=== PATIENT | male | born 1940 | race Caucasian/White ===

== ENCOUNTER 2016-09-14 08:42 | Inpatient (IN) | payer OTHER ==
--- NOTE | 2016-08-15 09:53 | HISTORY & PHYSICAL EXAMINATION ---
DATE OF ADMISSION: 09/14/2016 PROCEDURE: Left knee replacement. HISTORY OF PRESENT ILLNESS: The patient is a pleasant 76-year-old male who presents for preoperative evaluation prior to left knee replacement. States he is having pain in this knee for several years now which has gradually worsened, it has now gotten to the point that it is affecting his daily activities including walking, standing and going up and down steps. He takes oral anti-inflammatories including ibuprofen, has had previous viscosupplementation with no relief. He has completed a course of physical therapy. At this point in time, he has failed conservative measures and would like to proceed with left knee replacement. PAST MEDICAL HISTORY: 1. Hypertension. 2. High cholesterol. 3. History of melanoma. 4. BPH. ALLERGIES: No known drug allergies. MEDICATIONS: 1. Amlodipine 2.5 mg daily. 2. Benazepril 20 mg daily. 3. Zocor 20 mg daily. 4. Finasteride 5 mg daily. 5. Aspirin 81 mg daily. PAST SURGICAL HISTORY: Melanoma arm removed 2008. FAMILY HISTORY: Noncontributory. SOCIAL HISTORY: Denies a history of smoking or tobacco use. No alcohol consumption. REVIEW OF SYSTEMS: Otherwise negative. Please see HPI for pertinent positives. PHYSICAL EXAMINATION: GENERAL: A pleasant 76-year-old male in no acute distress, alert and oriented x3. He is 5 feet 10, weighs 200 pounds. VITAL SIGNS: Blood pressure is 132/80, pulse 93. HEENT: Normocephalic, atraumatic. CARDIAC: He has a grade 2 systolic ejection murmur noted, he also has regular rate and rhythm for between 5-6 beats and then drop beat and then resumes regular rhythm. LUNGS: Clear to auscultation without rales or wheeze bilaterally. ABDOMEN: Soft, nontender. Bowel sounds present. EXTREMITIES: Left lower extremity neurovascularly intact. Calves are soft and nontender. DP pulse +2. Demonstrates good quad tone. Straight leg raise without lag. No erythema or warmth. Has mild effusion. Overall has a varus alignment. Positive crepitation with motion. Range of motion is 0/3/120. IMAGING: Review of the left knee showed findings consistent with degenerative joint disease including joint space narrowing, subchondral sclerosis, osteophyte formation noted. IMPRESSION: 1. Left knee degenerative joint disease. 2. Past medical history as outlined above. PLAN: Further care discussed with the patient. At this point in time, has failed conservative measures and would like to proceed with left knee replacement. We will place on aspirin 81 mg p.o. b.i.d. for a month postop. Plan to discharge home with outpatient physical therapy. SHERITA
[2016-08-15 11:08] VITALS: BMI 28.0
--- NOTE | 2016-08-15 11:50 | PAT Medication Instructions ---
Service Date August 15, 2016. Current Home Medication List Amlodipine (Norvasc), 2.5 MG PO QAM Aspirin (Aspir-81), 1 TAB PO QPM Benazepril (Lotensin), 20 MG PO QAM Finasteride (Proscar), 5 MG PO QPM Znhlfmkythm-Totgwwzswmt-Tbkuye (Glucosamine & Chrondroiti) Vgsulduwtbe-Dhzgpbevaqn-Laz C- (Glucosamine Chondroitin), 2 CAP PO QAM Ibuprofen (Advil), 200 MG PO QAM Indomethacin (Indocin), 25 MG PO PRN PRN for GOUT Simvastatin (Zocor), 20 MG PO QPM Tamsulosin Hcl (Flomax), 0.4 MG PO QPM Medication Instructions For Your Scheduled Surgery Ibuprofen (Advil), 200 MG PO QAM (patient will check with surgeon for instructions) Indomethacin (Indocin), 25 MG PO PRN PRN for GOUT (not taking currently) - Hold the following medications 7 days prior to surgery: Splqdwetugc-Gowouexbwed-Wobuwo (Glucosamine & Chrondroiti) - Hold the following medications the morning of surgery: Benazepril (Lotensin), 20 MG PO QAM - Take the following medications the morning of surgery with a sip of water: Amlodipine (Norvasc), 2.5 MG PO QAM - Take the following medications as scheduled the night before surgery: Simvastatin (Zocor), 20 MG PO QPM Tamsulosin Hcl (Flomax), 0.4 MG PO QPM Finasteride (Proscar), 5 MG PO QPM Aspirin (Aspir-81), 1 TAB PO QPM If you have any questions please call us at [phone] or [phone] ( [place]) or [phone]
--- NOTE | 2016-08-15 12:19 | DIAGNOSTIC IMAGING REPORT ---
CHEST 2 VIEWS ROUTINE CLINICAL HISTORY: Preoperative evaluation. COMPARISON STUDY: No previous studies for comparison. FINDINGS: Lung volumes are at the lower limits of normal. Mild left basilar opacity suggests atelectasis. There is no consolidation to suggest pneumonia and there is no evidence of pulmonary edema. Cardiomediastinal silhouette is normal. IMPRESSION: No acute cardiopulmonary findings. Electronically signed by: Uli Freire M.D. 08/15/2016 12:17 PM Dictated Date/Time: 08/15/2016 12:17 PM
[2016-08-15 12:58] LABS: BASO % 0.3 %; BASO ABS # 0.02 K/uL (0-0.2); COMPLETE YES; EOS % 1.3 %; HEMATOCRIT 43.6 % (42-52); IG% 0.1 %; LYMPH % 29.9 %; LYMPH ABS # 2.23 K/uL (1.2-3.4); MEAN CELL VOLUME 88.6 fL (80-100); MEAN CORPUSCULAR HEMOGLOBIN 30.3 pg (25-34); MEAN CORPUSCULAR HGB CONC 34.2 g/dl (32-36); MONO % 5.6 %; NEUT % 62.8 %; PLATELET COUNT 182 K/uL (130-400); RED BLOOD COUNT 4.92 M/uL (4.7-6.1); WHITE BLOOD COUNT 7.47 K/uL (4.8-10.8)
[2016-08-15 12:59] LABS: URINE APPEARANCE CLEAR (CLEAR); URINE BILIRUBIN NEG (NEG); URINE COLOR YELLOW; URINE NITRITE NEG (NEG); URINE PH 6.5 (4.5-7.5); URINE SPECIFIC GRAVITY 1.016 (1.000-1.030); UROBILINOGEN NEG (NEG)
[2016-08-15 13:08] LABS: MANUAL MICROSCOPIC REQUIRED? NO; REVIEW REQ? NO
[2016-08-15 13:13] LABS: PROTHROMBIN TIME (PATIENT) 10.7 SECONDS (9.0-12.0)
[2016-08-15 13:16] LABS: ESTIMATED AVERAGE GLUCOSE 120 mg/dl; HA1C FLAG Normal (Normal)
[2016-08-15 13:55] LABS: BUN/CREATININE RATIO 9.5 (10-20); CALCIUM 9.3 mg/dl (8.5-10.1); POTASSIUM 3.9 mmol/L (3.5-5.1)
[2016-09-14] VITALS (7 sets, daily range): BP systolic 103–161; BP diastolic 58–85; PULSE 56–82; TEMP 36.4–36.7; O2SAT 94–98; Ht 180.3 cm; Wt 91.6 kg
[~2016-09-14] VITALS: Ht 180.3 cm; Wt 91.6 kg
--- NOTE | 2016-09-14 06:53 | History & Physical Bridge Note ---
H&P Re-Evaluation Bridge Note: I have examined the patient, reviewed the History & Physical and in the interval since the performance of the History & Physical I have noted the following changes of clinical significance: No changes noted
[~2016-09-14 08:42] MED LIST: ACETAMINOPHEN 500 MG TAB PO SCH; AMLO2.5T PO; ASPI-232 PO; BENA20TA14 PO; BUPIVACAINE 0.5 % 5 MG/1 ML PF 10ML VIAL ONE; CEFAZOLIN 2000 MG/60 ML D5W 60 ML IV SCH; CeleBREX 200 MG CAP PO SCH; DEXAMETHASONE 4 MG TAB PO SCH; FAMOTIDINE 20 MG TAB PO SCH; FINA5TAB PO; GABAPENTIN 300 MG CAP PO SCH; GLUC1CAP35 PO; GLUCPOW41; IBUP-1050 PO; INDO-22 PO; LACTATED RINGER'S 1000ML 1,000 ML IV SCH; LACTATED RINGER'S 1000ML 500 ML IV ONE; LACTATED RINGER'S 1000ML IV SCH; METOCLOPRAMIDE HCL 10 MG TAB PO SCH; ROPIVACAINE 5MG/ML 30 ML 150 MG, BUPIVACAINE/EPINEPHR 0.5% MPF 30 ML, KETOROLAC TROMETH... INFIL SCH; SIMV20TA2 PO; TAMS0.4C38 PO
[2016-09-14] MEDS ORDERED: ORTHO JOINT ANESTHETIC ONE (10:49)
[2016-09-14] MEDS ORDERED: BACITRACIN 50000 UNIT VIAL ONE (10:49)
[2016-09-14] MEDS ORDERED: POVIDONE-IODINE OP SOLN 30 ML BTL ONE (10:49)
[2016-09-14] MEDS: TRANEXAMIC ACID INJ 1,000 MG in SODIUM CHLORIDE 0.9% 100ML 100 ML IV SCH ×2 (10:55→14:07)
[2016-09-14] MEDS ORDERED: EpHEDrine SULFATE INJ 50 MG/ML AMP IV PRN (12:00)
[2016-09-14] MEDS ORDERED: FENTANYL CITRATE INJ 50 MCG/1 ML 2 ML VIAL IV PRN (12:00)
[2016-09-14] MEDS ORDERED: ONDANSETRON INJ 2 MG/ML 2 ML VIAL IV PRN ×2 (12:00→12:30)
[2016-09-14] MEDS ORDERED: ATROPINE SULFATE 0.1 MG/ML 5ML SYR IV PRN (12:00)
--- NOTE | 2016-09-14 12:29 | [facility] Post Operative Brief Note ---
Immediate Operative Summary Operative Date Sep 14, 2016. Pre-Operative Diagnosis Degenerative Joint Disease, Left Knee Post-Operative Diagnosis Degenerative Joint Disease, Left Knee Procedure(s) Performed Left Total Knee Arthoplasty Surgeon Dr. Rinaldi Second Facing Baster Surgeon(s) Koby Swann PA-C Estimated Blood Loss 5 cc Findings severe djd lt knee Specimens A: Left knee bone and tissue Complication(s) None Disposition Recovery Room / PACU
[2016-09-14] MEDS ORDERED: HYDROCODONE/ACETAMOPHEN 5/325MG TAB PO PRN (12:30)
[2016-09-14] MEDS ORDERED: METOCLOPRAMIDE HCL INJ 5 MG/ML 2 ML VIAL IV PRN (12:30)
[2016-09-14] MEDS ORDERED: SOD PHOSPHATE/SOD BIPHOSPHATE ENEMA 132 ML BTL PR PRN (12:30)
[2016-09-14] MEDS ORDERED: TRAMADOL HCL 50 MG TAB PO PRN (12:30)
[2016-09-14] MEDS ORDERED: MAGNESIUM HYDROXIDE SUSP 30 ML UDC PO PRN (12:30)
[2016-09-14] MEDS ORDERED: BISACODYL 10 MG SUPP PR PRN (12:30)
[2016-09-14] MEDS ORDERED: ZOLPIDEM TARTRATE 5 MG TAB PO PRN (12:30)
[2016-09-14] MEDS ORDERED: ALUMINUM/MAGNESIUM/SIMETH (MAALOX MAX) 30 ML UDC PO PRN (12:30)
[2016-09-14] MEDS ORDERED: DiphenhydrAMINE HCL 50 MG/ML VIAL IV PRN (12:30)
[2016-09-14] MEDS ORDERED: FENTANYL CITRATE INJ 50 MCG/1 ML 2 ML VIAL ONE (12:44)
[2016-09-14] MEDS ORDERED: PROPOFOL IV EMULSION 10 MG/ML 20 ML VIAL IV ONE (12:44)
[2016-09-14] MEDS ORDERED: LIDOCAINE HCL 2% 2 ML VIAL (20MG/ML) ONE (12:44)
[2016-09-14] MEDS ORDERED: MIDAZOLAM HCL 1 MG/ML 2ML VIAL ONE (12:44)
[2016-09-14] MEDS ORDERED: MoRPHine SULFATE 2 MG/ML CARP IV PRN (13:00)
--- NOTE | 2016-09-14 13:39 | Anesthesiology Progress Note ---
Anesthesia Post Op Note Date & Time Sep 14, 2016 at 13:39 Vital Signs Pain Intensity: 0 Vital Signs Past 12 Hours Date Time Temp Pulse Resp B/P (MAP) Pulse Ox O2 Delivery O2 Flow Rate FiO2 09/14/16 13:36 36.4 09/14/16 13:32 60 19 115/64 96 09/14/16 13:32 58 19 09/14/16 13:27 55 14 109/62 94 09/14/16 13:27 55 14 09/14/16 13:26 54 15 94 09/14/16 13:26 55 15 09/14/16 13:22 107/58 09/14/16 13:21 59 18 09/14/16 13:21 60 18 95 09/14/16 13:17 115/61 09/14/16 13:16 57 13 09/14/16 13:16 57 13 95 09/14/16 13:15 62 13 96 09/14/16 13:15 62 13 09/14/16 13:12 99/55 09/14/16 13:10 60 14 09/14/16 13:10 59 14 95 09/14/16 13:07 110/66 09/14/16 13:05 61 16 09/14/16 13:05 59 16 98 09/14/16 13:02 132/56 09/14/16 13:00 63 19 09/14/16 13:00 63 19 97 09/14/16 12:57 109/70 09/14/16 12:55 36.8 16 109/70 97 Mask 10 09/14/16 09:19 36.4 82 20 161/85 97 Room Air Notes Mental Status: alert / awake / arousable, participated in evaluation Pt Amnestic to Procedure: Yes Nausea / Vomiting: adequately controlled Pain: adequately controlled Airway Patency, RR, SpO2: stable & adequate BP & HR: stable & adequate Hydration State: stable & adequate Neuraxial Anesthesia: was administered, sensory block is resolving Anesthetic Complications: no major complications apparent
--- NOTE | 2016-09-14 14:02 | DIAGNOSTIC IMAGING REPORT ---
TWO VIEWS LEFT KNEE CLINICAL HISTORY: Postoperative examination. FINDINGS: AP and crosstable lateral portable views of the left knee are obtained. A left knee arthroplasty is in near anatomic alignment. There has been undersurface remodeling of the patella. No acute fracture is seen. There are expected postoperative changes around the knee including skin clips, a surgical drain, soft tissue edema, and subcutaneous gas. There is atherosclerotic calcification of the popliteal artery. IMPRESSION: Expected postoperative changes status post left knee arthroplasty. No acute fracture is seen. Electronically signed by: Julián Roberts M.D. 09/14/2016 2:01 PM Dictated Date/Time: 09/14/2016 2:01 PM
--- NOTE | 2016-09-14 14:27 | OPERATIVE REPORT ---
DATE OF OPERATION: 09/14/2016 PREOPERATIVE DIAGNOSIS: Severe end-stage tricompartmental degenerative joint disease, left knee. POSTOPERATIVE DIAGNOSIS: Severe end-stage tricompartmental degenerative joint disease, left knee. PROCEDURE: Left total knee arthroplasty utilizing Burgos [employer] Nephew Journey II patient matched total knee arthroplasty, size 7 femur, 7 tibia, 10 poly, and 32 oval patella. SURGEON: Dr. José Miguel Rinaldi. CORE MANAGER: WENDI Mac, who was necessary for prepping, draping, retraction, wound closure of subQ, fascia and skin and was necessary for the case. ESTIMATED BLOOD LOSS: 5 mL. COMPLICATIONS: None. HISTORY OF PRESENT ILLNESS: The patient presents as a 76-year-old white male, being seen and evaluated with complaints of ongoing pain attributable to his left knee. He has failed attempts at conservative management including physical therapy, anti-inflammatories, relative rest, activity modification, and injections including viscosupplementation and corticosteroids. He presents after thorough discussion of risks and complications for left total knee arthroplasty. DESCRIPTION OF PROCEDURE: The patient was properly prepped and draped in supine position for total knee arthroplasty after identifying the appropriate surgical site. An anterior midline incision was made through the subcutaneous tissues down to the region of the extensor mechanism. A medial parapatellar incision was subsequently made. Meticulous hemostasis was obtained and performed at all times. The patella having been subluxed lateralward, medial and lateral meniscal remnants were excised. The patellar cut was then initially made and was sized to the appropriate size. After subluxing the tibia forward the appropriate meniscal fragments having been removed the distal femur was then cut first utilizing a Burgos and Nephew block. The distal femoral cuts and chamfer cuts were all made under direct visualization and the proximal tibial osteotomy cut was also made utilizing Burgos and Nephew blocks and checked with an extramedullary guide. The appropriate trial components on the femur and tibia were placed. Appropriate trial spacers were used to check flexion and extension gaps. With flexion and extension gaps being equal, the components were then subsequently after thorough irrigation and debridement lavage components were then subsequently cemented in the following order: femur, tibia and patella. Exparel was used for intraoperative anesthesia, the medial parapatellar incision was closed utilizing #1 Vicryl, subQ was closed with 2-0 Vicryl, skin was closed with skin clips. A sterile compression dressing was placed. The patient was taken to recovery room in stable condition. Due to the complex nature of the procedure, the entire surgery was performed with the operational assistance of WENDI Mac. The team assistant, under direct supervision, was involved in the actual performance of all aspects of the surgical procedure including hemostasis, tissue retraction and incision, instrument management, patient positioning, and wound closure. I attest to the content of the Intraoperative Record and any orders documented therein. Any exception s are noted below.
[2016-09-14] MEDS: SODIUM CHLORIDE 0.9% 1000ML 1,000 ML IV SCH (14:45)
[2016-09-14] MEDS: OXYCODONE HCL 10 MG TABCR (OXYCONTIN) PO SCH (15:42)
[2016-09-14] MEDS: FERROUS GLUCONATE 324 MG TAB PO SCH (17:53)
[2016-09-14] MEDS ORDERED: TRANEXAMIC ACID INJ 1,000 MG in SODIUM CHLORIDE 0.9% 100ML 100 ML IV SCH (19:00)
[2016-09-14] MEDS: CEFAZOLIN IV 1,000 MG in DEXTROSE 5% 50ML 50 ML IV SCH (21:00)
[2016-09-14] MEDS ORDERED: ASPIRIN 325 MG ECTAB PO SCH (21:00)
[2016-09-14] MEDS: DOCUSATE SODIUM 100 MG CAP PO SCH (21:02)
[2016-09-14] MEDS: SIMVASTATIN 20 MG TAB PO SCH (21:02)
[2016-09-14] MEDS: ASPIRIN 81 MG ECTAB PO SCH (21:02)
[2016-09-14] MEDS: FINASTERIDE 5 MG TAB PO SCH (21:02)
[2016-09-14] MEDS: TAMSULOSIN HCL 0.4 MG CAP PO SCH (21:02)
[2016-09-14] MEDS: SENNA 8.6 MG TAB PO SCH (21:02)
[2016-09-15] MEDS: SODIUM CHLORIDE 0.9% 1000ML 1,000 ML IV SCH ×2 (00:23→10:30)
[2016-09-15] MEDS: OXYCODONE HCL IR 5 MG TAB (IMMEDIATE RELEASE) PO PRN ×3 (00:23→15:34)
[2016-09-15 04:00] VITALS: BP 106/60; PULSE 65; TEMP 36.6; O2SAT 97
[2016-09-15] MEDS: CEFAZOLIN IV 1,000 MG in DEXTROSE 5% 50ML 50 ML IV SCH (04:09)
[2016-09-15 07:38] VITALS: BP 110/66; PULSE 68; TEMP 36.8; O2SAT 94
[2016-09-15 07:38] LABS: HEMATOCRIT 32.7 % (42-52); MEAN CELL VOLUME 87.9 fL (80-100); MEAN CORPUSCULAR HEMOGLOBIN 29.3 pg (25-34); MEAN CORPUSCULAR HGB CONC 33.3 g/dl (32-36); MEAN PLATELET VOLUME 9.5 fL (7.4-10.4); PLATELET COUNT 154 K/uL (130-400); RED BLOOD COUNT 3.72 M/uL (4.7-6.1); WHITE BLOOD COUNT 16.31 K/uL (4.8-10.8)
[2016-09-15 07:56] VITALS: O2SAT 94
--- NOTE | 2016-09-15 08:14 | Orthopedic Progress Note ---
Orthopedic Progress Note Date of Service Sep 15, 2016. Subjective Post OP Day: 1 Reports: feeling well, Denies: chest pain, SOB, nausea / vomiting, light headedness, calf pain Objective calves soft nontender, N/V intact, A&O x3, toes mobile Dressings with mild drainage last night. Dressing reinforced. No drainage since then. Date Time Temp Pulse Resp B/P (MAP) Pulse Ox O2 Delivery O2 Flow Rate FiO2 09/15/16 07:56 94 Room Air 09/15/16 07:38 36.8 68 18 110/66 (81) 94 Room Air 09/15/16 04:00 36.6 65 16 106/60 (75) 97 Room Air 09/15/16 00:25 Room Air 09/14/16 23:13 36.7 62 18 103/58 (73) 94 Room Air 09/14/16 19:01 36.4 67 16 122/74 (90) 97 Nasal Cannula 2.0 09/14/16 17:24 36.4 62 16 109/63 (78) 96 Nasal Cannula 2.0 09/14/16 16:00 36.4 65 16 125/75 (92) 97 Nasal Cannula 2.0 09/14/16 15:37 Nasal Cannula 2.0 09/14/16 15:05 36.7 66 16 126/79 (95) 98 Nasal Cannula 2.0 09/14/16 13:50 Nasal Cannula 2.0 09/14/16 13:50 36.6 56 16 121/62 (81) 97 Nasal Cannula 2.0 09/14/16 13:50 97 Nasal Cannula 2.0 09/14/16 13:43 52 16 09/14/16 13:43 52 16 96 09/14/16 13:42 113/63 09/14/16 13:38 54 16 09/14/16 13:38 57 16 96 09/14/16 13:37 109/64 09/14/16 13:36 36.4 09/14/16 13:33 60 18 96 09/14/16 13:33 60 18 09/14/16 13:32 60 19 115/64 96 09/14/16 13:32 58 19 09/14/16 13:27 55 14 109/62 94 09/14/16 13:27 55 14 09/14/16 13:26 54 15 94 09/14/16 13:26 55 15 09/14/16 13:22 107/58 09/14/16 13:21 59 18 09/14/16 13:21 60 18 95 09/14/16 13:17 115/61 09/14/16 13:16 57 13 09/14/16 13:16 57 13 95 09/14/16 13:15 62 13 96 09/14/16 13:15 62 13 09/14/16 13:12 99/55 09/14/16 13:10 60 14 09/14/16 13:10 59 14 95 09/14/16 13:07 110/66 09/14/16 13:05 61 16 09/14/16 13:05 59 16 98 09/14/16 13:02 132/56 09/14/16 13:00 63 19 09/14/16 13:00 63 19 97 09/14/16 12:57 109/70 09/14/16 12:55 36.8 16 109/70 97 Mask 10 09/14/16 09:19 36.4 82 20 161/85 97 Room Air Laboratory Results 24 Hours: Test 09/15/16 07:22 Hematocrit 32.7 % Hemoglobin 10.9 g/dL Assessment & Plan Assessment: POD 1 s/p Left TKA Plan: PT/OT Pt to decide btw HH or OPPT Inhouse Planning Pain Management: Oxycontin, Ultram, Morphine, Oxy IR DVT Prophylaxis: TEDs, SCDs, ASA Discharge Planning Discharge Planning: uncertain
[2016-09-15] MEDS: FERROUS GLUCONATE 324 MG TAB PO SCH ×3 (08:54→17:51)
[2016-09-15] MEDS: DOCUSATE SODIUM 100 MG CAP PO SCH ×2 (08:54→20:45)
[2016-09-15] MEDS: ASPIRIN 81 MG ECTAB PO SCH ×2 (08:54→20:45)
[2016-09-15] MEDS: AMLODIPINE BESYLATE 5 MG TAB PO SCH (08:55)
[2016-09-15] MEDS: PANTOprazole SOD 40 MG TAB PO SCH (08:55)
[2016-09-15] MEDS: ENALAPRIL MALEATE 10 MG TAB PO SCH (08:55)
[2016-09-15] MEDS: MULTIVITAMIN TAB PO SCH (08:55)
[2016-09-15] MEDS: OXYCODONE HCL 10 MG TABCR (OXYCONTIN) PO SCH ×2 (08:58→20:45)
--- NOTE | 2016-09-15 10:31 | Anesthesiology Progress Note ---
Anesthesia Post Op Note Date & Time Sep 15, 2016 at 10:31 Vital Signs Pain Intensity: 3.0 Vital Signs Past 12 Hours Date Time Temp Pulse Resp B/P (MAP) Pulse Ox O2 Delivery O2 Flow Rate FiO2 09/15/16 07:56 94 Room Air 09/15/16 07:45 Room Air 09/15/16 07:38 36.8 68 18 110/66 (81) 94 Room Air 09/15/16 04:00 36.6 65 16 106/60 (75) 97 Room Air 09/15/16 00:25 Room Air 09/14/16 23:13 36.7 62 18 103/58 (73) 94 Room Air Notes Mental Status: alert / awake / arousable, participated in evaluation Pt Amnestic to Procedure: Yes Nausea / Vomiting: adequately controlled Pain: adequately controlled Airway Patency, RR, SpO2: stable & adequate BP & HR: stable & adequate Hydration State: stable & adequate Neuraxial Anesthesia: was administered, sensory block resolved Anesthetic Complications: no major complications apparent
[2016-09-15 11:40] VITALS: BP 110/60; PULSE 71; TEMP 36.5; O2SAT 95
[2016-09-15 15:12] VITALS: BP 99/57; PULSE 68; TEMP 36.7; O2SAT 93
--- NOTE | 2016-09-15 17:06 | Discharge Instructions ---
Discharge Instructions Date of Service Sep 15, 2016. Admission Reason for Admission: Unilateral Primary Osteoarthritis Left Knee Discharge Discharge Diagnosis / Problem: Left Knee Djd Discharge Goals Goal(s): Decrease discomfort, Improve function Activity Recommendations Activity Limitations: per Instructions/Follow-up section Weightbearing Status: Left weightbearing (as tolerated) . Instructions / Follow-Up Instructions / Follow-Up ACTIVITY RECOMMENDATIONS: SELF CARE INSTRUCTIONS AFTER TOTAL KNEE REPLACEMENT A. You may need to continue a physical therapy program after discharge from the hospital. There are several options available to you. Your doctor will assist you in selecting the best one for you. 1. An out-patient facility 2 to 3 times a week for therapy or home therapy. 2. Continue working on all exercises taught to you in the hospital. Your goals should be to increase bending of your knee to 90 degrees and beyond and to fully straighten your knee. B. You may progress at your own pace from walking with a walker or crutches to a cane; then to no assistive devices. C. Make walking a part of your daily routine. Be up as much as comfortable with rest periods throughout the day. Rest with leg elevation is very important. Use the ice wrap frequently for the first 3-4 weeks. D. There are no restrictions on activities. You may ride in a car, shop, participate in market basket maker and all social activities. E. Wear the long elastic stockings (RADHA hose) 20 hours a day for 2 weeks after surgery. They can be removed several times a day for laundering and for a bath. F. You may shower, no tub baths until cleared by your doctor. SPECIAL CARE INSTRUCTIONS: VERY IMPORTANT TO READ AND REVIEW A. There are a few signs you need to watch for after you are home. Call [facility] [place] if you notice any of the followin. Increased severe knee pain. Some pain is expected especially when you exercise. 2. Increased swelling in your leg or knee; pain or swelling of the calf muscle in either lower leg. 3. Any fluid drainage from the incision. 4. Shortness of breath or chest pain. B. Please call [facility] at if you have any concerns or questions about your operation or recovery. The doctor or his nurse will return your call promptly. C. You must take antibiotics before dental work, bladder, bowel or other surgery. Your doctor will provide you with a permanent care to carry describing this precaution. IMPORTANT: * REMEMBER TO TAKE ASPIRIN, 81 MG, TWICE DAILY FOR 4 WEEKS UNLESS OTHERWISE DIRECTED. THIS IS YOUR BLOOD THINNER. * HIGH RISK PATIENTS MAY BE PRESCRIBED A STRONGER BLOOD THINNER. THIS WILL BE PROVIDED AT DISCHARGE. * CALL IF INCREASED PAIN, REDNESS, DRAINAGE OR FEVER GREATER THAT 101. * WEAR RADHA HOSE 20 HOURS PER DAY FOR 2 WEEKS. * Silverlon- This is a large adhesive bandage that contains silver ions. This helps your incision heal by fighting off bacteria and protecting it from the outside environment. You are permitted to shower with this dressing. This will remain on your incision for 7 days and then should be removed. Some visible blood or drainage through the dressing window is normal. If there is significant drainage or leaking noted before the 7 days notify your doctor's office immediately. Once removed, keep incision clean and dry. If there is any drainage or redness noted, please call your surgeon. . FOLLOW UP VISIT: If appointment is not already scheduled: Please call [facility] [place] to make a follow-up appointment for 2 weeks after your surgery at . Current Hospital Diet Patient's current hospital diet: Regular Diet Discharge Diet Recommended Diet: Regular Diet Procedures Procedures Performed: Left Total Knee Arthoplasty Pending Studies Studies pending at discharge: no Laboratory Results Hemoglobin A1c Test 08/15/16 11:09 Range/Units Estimated Average Glucose 120 mg/dl Hemoglobin A1c 5.8 H 4.5-5.6 % Medical Emergencies . Who to Call and When: Medical Emergencies: If at any time you feel your situation is an emergency, please call 911 immediately. . Non-Emergent Contact Non-Emergency issues call your: Surgeon Call Non-Emergent contact if: temperature is above 101.5, your pain is not controlled, your pain is worsening, wound has increased drainage, wound has increased redness . "Provider Documentation" section prepared by Koby Swann. . VTE Core Measure Inpt VTE Proph given/why not?: Other Anticoagulation, T.E.D. Stockings, SCD's [place] Drug Monitoring Program Search Results: patient reviewed within database, no issues identified
[2016-09-15] MEDS: SENNA 8.6 MG TAB PO SCH (20:58)
[2016-09-15] MEDS: SIMVASTATIN 20 MG TAB PO SCH (20:58)
[2016-09-15] MEDS: FINASTERIDE 5 MG TAB PO SCH (20:58)
[2016-09-15] MEDS: TAMSULOSIN HCL 0.4 MG CAP PO SCH (20:58)
[2016-09-15 23:20] VITALS: BP 124/72; PULSE 67; TEMP 36.5; O2SAT 94
[2016-09-16] MEDS: OXYCODONE HCL IR 5 MG TAB (IMMEDIATE RELEASE) PO PRN ×3 (02:33→13:21)
[2016-09-16 06:34] VITALS: BP 117/68; PULSE 114; TEMP 36.4; O2SAT 93
[2016-09-16] MEDS: MULTIVITAMIN TAB PO SCH (07:21)
[2016-09-16] MEDS: OXYCODONE HCL 10 MG TABCR (OXYCONTIN) PO SCH (07:21)
[2016-09-16] MEDS: AMLODIPINE BESYLATE 5 MG TAB PO SCH (07:21)
[2016-09-16] MEDS: ENALAPRIL MALEATE 10 MG TAB PO SCH (07:22)
[2016-09-16] MEDS: FERROUS GLUCONATE 324 MG TAB PO SCH ×2 (07:22→12:44)
[2016-09-16] MEDS: PANTOprazole SOD 40 MG TAB PO SCH (07:22)
[2016-09-16] MEDS: ASPIRIN 81 MG ECTAB PO SCH (07:32)
[2016-09-16] MEDS: DOCUSATE SODIUM 100 MG CAP PO SCH (07:32)
--- NOTE | 2016-09-16 10:57 | Orthopedic Progress Note ---
Orthopedic Progress Note Date of Service Sep 16, 2016. Subjective Reports: feeling well, Denies: complaints, chest pain, SOB, nausea / vomiting, light headedness, calf pain Additional Notes: Nursing states that the Silverlon dressing was changed. No other problems. Pain controlled. Objective calves soft nontender, N/V intact, dressing C/D/I, A&O x3, toes mobile Date Time Temp Pulse Resp B/P (MAP) Pulse Ox O2 Delivery O2 Flow Rate FiO2 09/16/16 07:28 Room Air 09/16/16 06:34 36.4 114 16 117/68 (84) 93 Room Air 09/16/16 00:04 Room Air 09/15/16 23:20 36.5 67 16 124/72 (89) 94 Room Air 09/15/16 15:30 Room Air 09/15/16 15:12 36.7 68 16 99/57 (71) 93 Room Air 09/15/16 11:40 36.5 71 21 110/60 (77) 95 Room Air Assessment & Plan Assessment: POD 2 s/p Left TKA Plan: PT/OT Planning for OPPT DC to home today Inhouse Planning Pain Management: Oxycontin, Ultram, Morphine, Oxy IR DVT Prophylaxis: TEDs, SCDs, ASA Discharge Planning Discharge Planning: uncertain Pain Management: Oxycontin, PO Tylenol, Oxy IR DVT Prophylaxis: TEDs, ASA Therapy: Physical Therapy
[2016-09-16] MEDS ORDERED: RXC5 PO (11:00)
[2016-09-16] MEDS ORDERED: SNK PO (11:00)
[2016-09-16] MEDS ORDERED: ASPI-232 PO (11:00)
[2016-09-16] MEDS ORDERED: OXYSR10 PO (11:00)
[2016-09-16] MEDS ORDERED: ACET-1138 PO (11:07)
[2016-09-16 11:08] VITALS: BP 117/68; PULSE 114; TEMP 36.4; O2SAT 93
--- NOTE | 2016-09-19 16:57 | DISCHARGE SUMMARY ---
DISCHARGE DIAGNOSIS: Degenerative joint disease, left knee. SECONDARY DIAGNOSES: Hypertension, hypercholesterolemia, history of melanoma, and benign prostatic hypertrophy. CONSULTS: None. COMPLICATIONS: None. PROCEDURES: Left total knee arthroplasty performed by Dr. Rinaldi on 09/14/2016. BRIEF HISTORY OF PRESENT ILLNESS: As dictated in the history and physical. HOSPITAL SUMMARY: The patient was admitted on the above-noted date and had the above-noted surgery performed which he tolerated well. On his first postoperative day, he was feeling well and he denied chest pain, shortness of breath, nausea, vomiting or lightheadedness. Calves were soft and nontender, neurovascularly intact and toes were mobile. Dressings had mild drainage over the previous night and were reinforced. He had no drainage since then on the new dressings. Vital signs were stable. He was afebrile. Hemoglobin was 10.9. He was started on physical therapy protocol and continued on DVT prophylaxis and pain management. By his second postoperative day, he was feeling well and it was noted that his Silverlon dressing was changed due to increased drainage noted in the window of the dressing itself, but there was no overt drainage coming from underneath the dressing itself. He had no complaints of chest pain, shortness of breath, nausea or vomiting, lightheadedness or calf pain. Calves were soft and nontender. Neurovascularly intact. Dressings were clean, dry and intact. Toes were mobile. Vital signs were stable. He was afebrile. He is progressing quite well with his physical therapy and it was felt that he could be discharged to home. For further review, please see chart. LABORATORY AND X-RAY DATA: As per chart. DISCHARGE INSTRUCTIONS: The patient was discharged to home in satisfactory condition on 09/16/2016. DIET: Regular. ACTIVITY: Weightbearing as tolerated to the left lower extremity. Follow up TKA instruction sheets and special care instructions as noted. Follow up with Dr. Rinaldi in 2 weeks. The patient to call for appointment if one has not been made for you. DISCHARGE MEDICATIONS: New prescriptions; acetaminophen 1000 mg p.o. q. 8 hours for 30 days, OxyContin 10 mg p.o. q. 12 hours, oxycodone 5-10 mg p.o. q. 4 hours p.r.n., senna 17.2 mg p.o. at bedtime, aspirin 1 tab p.o. b.i.d. for 30 days, after 30 days, resume once daily dosing. Resume home meds including amlodipine, Lotensin, Proscar, simvastatin, and Flomax. Stop taking glucosamine, ibuprofen and indomethacin.
== END 2016-09-16 13:26 | disposition home or self-care (01) | DRG 470 ==
LOC: C.ACU 08:42 → C.3E 10:00 → ENRESERV 13:28
PROVIDERS: ADMIT Orthopaedic Surgery; ATTEND Orthopaedic Surgery
PROC: 0SRD0JZ Replacement of Left Knee Joint with Synthetic Substitute, Open Approach (ICD-10-PCS; principal; 2016-09-14 11:00)
DX: M17.12 Unilateral primary osteoarthritis, left knee (principal); I10 Essential (primary) hypertension; E78.00 Pure hypercholesterolemia, unspecified; N40.0 Benign prostatic hyperplasia without lower urinary tract symptoms; Z85.820 Personal history of malignant melanoma of skin; Z79.82 Long term (current) use of aspirin; Z79.899 Other long term (current) drug therapy; Z79.1 Long term (current) use of non-steroidal anti-inflammatories (NSAID)

== ENCOUNTER 2016-09-18 11:23 | Observation (INO) | payer OTHER ==
[~2016-09-18] VITALS: Ht 180.3 cm; Wt 91.0 kg
[~2016-09-18 11:23] MED LIST changes: +ACET-1138 PO; -ACETAMINOPHEN 500 MG TAB PO SCH; -BUPIVACAINE 0.5 % 5 MG/1 ML PF 10ML VIAL ONE; -CEFAZOLIN 2000 MG/60 ML D5W 60 ML IV SCH; -CeleBREX 200 MG CAP PO SCH; -DEXAMETHASONE 4 MG TAB PO SCH; -FAMOTIDINE 20 MG TAB PO SCH; -GABAPENTIN 300 MG CAP PO SCH; -GLUC1CAP35 PO; -GLUCPOW41; -IBUP-1050 PO; -INDO-22 PO; -LACTATED RINGER'S 1000ML 1,000 ML IV SCH; -LACTATED RINGER'S 1000ML 500 ML IV ONE; -LACTATED RINGER'S 1000ML IV SCH; -METOCLOPRAMIDE HCL 10 MG TAB PO SCH; +OXYSR10 PO; -ROPIVACAINE 5MG/ML 30 ML 150 MG, BUPIVACAINE/EPINEPHR 0.5% MPF 30 ML, KETOROLAC TROMETH... INFIL SCH; +RXC5 PO; +SNK PO
[2016-09-18 14:50] VITALS: BP 135/65; PULSE 84; TEMP 36.6; O2SAT 97
[2016-09-18 15:17] VITALS: BP 113/65; PULSE 79; TEMP 36.7; O2SAT 91
[2016-09-18 16:09] VITALS: BP 113/65; PULSE 79; TEMP 36.7; O2SAT 91; Ht 180.3 cm; Wt 91.0 kg
--- NOTE | 2016-09-18 16:22 | History and Physical ---
History & Physical Date & Time of Service: Sep 18, 2016 at 16:21 Chief Complaint: FEVER Primary Care Physician: José Miguel Devries M.D. History of Present Illness Source: patient Patient underwent total knee arthroplasty on 09/15/15 here at [facility] by Dr. Rinaldi. Procedure went well, as per patient, with no immediate complications. However, patient has had some ongoing bleeding from drain site since prior to discharge on 09/16/16. This has since improved since yesterday. Surgical wound is dressed and patient was advised no to change dressing until follow up on 09/30. The drain site dressing is changed daily. Patient has noticed some redness and scant hemoserous drainage from there, but no pus. Initial rehab has been unremarkable. However, patient awoke with a fever Monday morning of 101.7, despite acetaminophen q8h. Fever went away post morning Tylenol dose and patient was able to exercise and continue rehab, as he was feeling a lot better. He even went for a walk around the garden. He denies any tick bite, soiling of the dressing or trauma. At the end of night, patient took a shower, he started feeling heart burn and patient vomited into the shower. Stomach was upset and even drinking water was uncomfortable. He had been tolerating diet well up to that point. In retrospect , he also feels he had diminished urination, but that has since resolved. He denies and UTI symptoms and states his bowels are moving, without changes. Patient was able to go to bed that night, The follwoing morning, patient again awoke with a fever of 101.9. In addition, he felt chills, lightheaded, nauseous and extremely weak. His measured BP at the time was 90/57 as per family. He denies syncope/presyncopal episodes/ room spinning/ loss of vision/ headache. He described orthostatic symptoms worse when transitioning from sitting to standing. The family called the surgeon, who referred them to the ED In [facility], diagnostic tests were done (see below), including a blood culture. Empiric Vanc and Zosyn were started, as well as IVF NSS. In hospital, patients sats fell to 75% (as per family) and blood pressure was also low. Supplemental oxygen was provided and decision was made to transfer patient. Family History Patient denies any pertinent family history No history of clots in family Social History Smoking Status: Never Smoker Smokeless Tobacco Use: No Alcohol Use: occasionally Drug Use: none Marital Status: Housing status: lives with family Occupational Status: employed Immunizations History of Influenza Vaccine: No History of Pneumococcal: Yes History of Hepatitis B Vaccine: Unknown Allergies Coded Allergies: No Known Allergies (Unverified , 09/14/16) Home Medications Scheduled Acetaminophen (Tylenol Extra Strength), 2 TABS PO Q8H Amlodipine (Norvasc), 2.5 MG PO QAM Aspirin (Aspir-81), 1 TAB PO BID Benazepril (Lotensin), 20 MG PO QAM Finasteride (Proscar), 5 MG PO QPM Oxycodone HCl (Oxycontin), 10 MG PO Q12 Senna (Senna Lax), 17.2 MG PO HS Simvastatin (Zocor), 20 MG PO QPM Tamsulosin Hcl (Flomax), 0.4 MG PO QPM Scheduled PRN Oxycodone HCl (Oxycodone HCl), 5-10 MG PO Q4H PRN for Pain Review of Systems Constitutional: + fever, + chills, + fatigue, + problem reported (Dizzy/ lightheaded), No sweats, No weakness Eyes: No worsening of vision, No eye pain, No redness, No discharge, No diplopia ENT: No hearing loss, No unusual epistaxis, No nasal symptoms, No sore throat, No tinnitus, No dental problems, No trouble swallowing Respiratory: No cough, No sputum, No wheezing, No shortness of breath, No dyspnea on exertion, No dyspnea at rest, No hemoptysis Cardiovascular: + edema (Left leg swelling post surgery), No chest pain, No orthopnea, No PND, No claudication, No palpitations Abdomen: + nausea (last night), + vomiting, No pain, No diarrhea, No constipation, No GI bleeding Musculoskeletal: + joint pain, + problem reported (Left heal burning yesterday) , No muscle pain Genitourinary - Male: No hematuria, No dysuria Neurologic: + numbness/tingling (in the morning, resolved now), No paralysis, No weakness, No vertigo, No balance problems Integumentary: + problem reported (blister on left medial knee, secondary to previous adhesive.), No rash, No itch Allergic / Immunologic: No environmental allergies, No seasonal allergies, No pet sensitivities, No food allergies Physical Exam Vital Signs Date Time Temp Pulse Resp B/P (MAP) Pulse Ox O2 Delivery O2 Flow Rate FiO2 09/18/16 15:17 36.7 79 18 113/65 (81) 91 Nasal Cannula 2.0 09/18/16 14:50 36.6 84 16 135/65 (88) 97 Nasal Cannula 2.0 General Appearance: WD/WN, no apparent distress Head: normocephalic, atraumatic Eyes: normal inspection, PERRL, EOMI ENT: hearing grossly normal, pharynx normal Neck: supple, no adenopathy, no JVD Respiratory/Chest: lungs clear, normal breath sounds, no respiratory distress, no accessory muscle use Cardiovascular: regular rate, rhythm, no JVD, + systolic murmur Abdomen/GI: normal bowel sounds, non tender, soft, no organomegaly Back: no CVA tenderness Extremities/Musculoskelatal: no calf tenderness, normal capillary refill, + swelling (Left thigh markedly more swollen than right) Neurologic/Psych: alert, normal mood/affect, oriented x 3 Skin: warm/dry, + pertinent finding (Bruises on left leg extending from knee to mid thigh. Bullous lesions on medial right knee post adhesive tape removal. Drain wound site clean, intact, with minimal hemoserous drainage. Surgical site dressed.) Results Past 24 Hours Test 09/18/16 18:22 Range/Units Creatinine 1.20 0.60-1.40 mg/dl Est Creatinine Clear Calc Drug Dose 89.6 ml/min Estimated GFR () 68.6 Estimated GFR (Non- 59.2 Diagnostics Laboratory Results Remarkable labs from [facility]: Hb 9.9 WBC 10.3, neutrophils 9.1 Plt 154 ESR 72 Lactate 1.1 Blood cultures pending Creatinine 1.3 Albumin 2.4 PTT/PT/INR - WNL Trop negative EKG - sinus tachy, non-specific T wave abnormality UA trace ketones, few hyaline casts Ur OS pending CXR - report pending (normal per family) Impression Assessment and Plan 76 male transferred from [facility] with post operative fevers. Underwent left total knee arthroplasty on 09/14/16 and is currently POD 4 Fevers - CXR reportedly normal ass per family, and clear on auscultation. UA shows ketones and few hyaline casts only. Drain wound site clean and in tact- surgical site not assessed. Left leg doppler U/S negative for DVT - Empiric coverage with IV vancomycin and Zosyn - Follow up on CXR report and blood cultures taken at [facility] - Orthopedics consulted - Trend CBC and BMP Hypoxia - Supplemental oxygen, wean as tolerated - PT/OT Pain - Tylenol 1000mg q8h - Oxycodone IR 5mg PRN q4h - Oxycodone SR 10mg q12h - Senna qHS - PT/OT HTN - Amlodipine 2.5mg qAM - Benazepril 20mg daily held in view of mildly elevated creatinine and hyaline casts on outside UA + orthostatic symptoms - Orthostatic BP BID BPH - Finasteride 5mg qHS + tamsulosin 0.4mg qHS VTE PPx - Aspirin 81mg BID x 30 days post op as per surgeon - MARBELLA Tam Dispo - Med/surg FULL CODE Level of Care Med/Surg Advanced Directives Existing Advance Directive: Yes Existing Living Will: Yes Existing Power of Dimensional Inspector: Yes (Koby - son) Resuscitation Status FULL RESUSCITATION VTE Prophylaxis VTE Risk Assessment Done? Y/N: Yes Risk Level: Moderate Given or contraindicated: Other Anticoagulation, T.E.D. Stockings, SCD's Note Resident Physician Supervision Note: I was present with PGY1 Dr. Verónica Bedolla during the admission history and exam. I discussed the case with the resident and agree with the findings and plan as documented in the note. Any exceptions or clarifications are listed here: none. Pleasant 76yo male with h/o HTN & BPH who underwent elective left TKR on 09/14/16 without complication. Discharged on 09/16/16 to home in stable condition. By history he felt well and had no fevers. About 24 hours ago developed fever to > 101 degrees, then had repeat fever this AM - 101.7. Upon presentation to [facility] in [facility] he was hypoxic and placed on O2. Chest xray - my reading (downloaded in PACS and reviewed personally) - no obvious infiltrates. U/a not suggestive of infection. Urine cx and blood cx's sent. Placed on IV abx and transferred to [facility]. Upon presentation here he complained that his left thigh "has gotten more swollen" since leaving last week. PMH, PSH, allergies, meds, socx, famhx, ros - reviewed VSS no fever gen - nontoxic appearing neck - no JVD heart - RRR, extra beats at times, s1, s2 lungs - CTA b/l, no obvious rales abd - soft, NT, no HSM ext - left thigh with swelling and ecchymoses, right thigh normal; left ankle 1 + edema, none on right skin - large dressing in place over surgical incision, left knee; previous drain site wnl; mild ecchymoses labs per Dr. Bedolla's note sed rate 72 lactate nl u/a w/ hyaline casts but o/w not suggestive of UTI chest x-ray w/o infiltrates A/P: 1. fever - check doppler of LLE r/o DVT. Will need to call [facility] tomorrow for urine and blood cx results. Consider CT chest to r/o PE and/or pneumonia tomorrow if there is any ongoing concern of pulmonary pathology, O2 requirement, etc. Empiric IV abx in meantime. Ask orthopedics to see re: TKR on left to ensure that knee is not source of infection but patient denies any significant pain and states "it feels great." 2. HTN - hold CARISSA, reasonable to continue norvasc. 3. dizziness - could be due to oxycontin or oxycodone, infection, low BP, etc Check orthostatics. Hold CARISSA. 4. s/p left TKR - orthopedics consult; PT, OT. 5. DVT proph - asa 81 BID. repeat labs AM Documented By: Larry Guidry MD Additional Copies To José Miguel Devries M.D. Resident Tracking Resident Involvement: Resident Care Provided Care Provided: Adult [facility] Medicine
[2016-09-18] MEDS ORDERED: MAGNESIUM HYDROXIDE SUSP 30 ML UDC PO PRN (17:30)
[2016-09-18] MEDS ORDERED: ALUMINUM/MAGNESIUM/SIMETH (MAALOX MAX) 30 ML UDC PO PRN (17:30)
[2016-09-18] MEDS ORDERED: POLYETHYLENE (MIRALAX) 17 GM PACK PO PRN (17:30)
[2016-09-18] MEDS ORDERED: ACETAMINOPHEN 325 MG TAB PO PRN (17:30)
[2016-09-18] MEDS ORDERED: OXYCODONE HCL IR 5 MG TAB (IMMEDIATE RELEASE) PO PRN (17:30)
[2016-09-18] MEDS ORDERED: ONDANSETRON INJ 2 MG/ML 2 ML VIAL IV PRN (17:30)
[2016-09-18] MEDS ORDERED: PIPERACILL/TAZOBAC IV 4.5 GM in DEXTROSE 5% 100ML 100 ML IV ONE (18:06)
[2016-09-18] MEDS ORDERED: VANCOMYCIN INJ 2,700 MG in SODIUM CHLORIDE 0.9% 500ML 500 ML IV STA (18:07)
[2016-09-18] MEDS ORDERED: VANCOMYCIN CONSULT ACTIVE PRN (18:15)
[2016-09-18] MEDS ORDERED: PIPERACILL/TAZOBAC CONSULT ACTIVE PRN (18:15)
[2016-09-18 18:54] LABS: CREATININE 1.2 mg/dl (0.60-1.40)
--- NOTE | 2016-09-18 18:56 | DIAGNOSTIC IMAGING REPORT ---
ULTRASOUND LEFT VENOUS DOPP LOWER EXT UNILAT CLINICAL HISTORY: Left thigh swelling. post op day 4 COMPARISON STUDY: No previous studies for comparison. FINDINGS: Real-time and color flow Doppler imaging were performed. Flow was seen within the femoral, popliteal and calf veins with no intraluminal thrombus demonstrated. The saphenous vein is patent. IMPRESSION: No evidence of left lower extremity DVT. Electronically signed by: Shay Mendez M.D. 09/18/2016 6:54 PM Dictated Date/Time: 09/18/2016 6:54 PM
[2016-09-18] MEDS: ACETAMINOPHEN 500 MG TAB PO SCH (19:13)
[2016-09-18 20:00] VITALS: BP 111/74
[2016-09-18] MEDS ORDERED: IV FLUIDS COMPLETED PRN (20:15)
[2016-09-18] MEDS ORDERED: VANCOMYCIN INJ 2,200 MG in SODIUM CHLORIDE 0.9% 500ML 500 ML IV STA (20:30)
[2016-09-18] MEDS: ASPIRIN 81 MG ECTAB PO SCH (20:53)
[2016-09-18] MEDS ORDERED: TAMSULOSIN HCL 0.4 MG CAP PO SCH (21:00)
[2016-09-18] MEDS ORDERED: SENNA 8.6 MG TAB PO SCH (21:00)
[2016-09-18] MEDS ORDERED: SIMVASTATIN 20 MG TAB PO SCH (21:00)
[2016-09-18] MEDS ORDERED: FINASTERIDE 5 MG TAB PO SCH (21:00)
--- NOTE | 2016-09-18 21:29 | Pharmacy Progress Note ---
Pharmacy Abx Initial Consult Date of Service Sep 18, 2016. Pharmacy Dosing Scope Date of Consult: 09/18/16 Consultation requested by: Dr. Bedolla Pharmacy is consulted to initiate Vancomycin and Zosyn IV dosing therapy, order appropriate labs and adjust drug dose/frequency. Subjective The patient is a 76 year old male admitted on Sep 18, 2016 at 14:50. Objective Height (Feet): 5 Height (Inches): 11.00 Weight (Kilograms): 91.000 Vital Signs (Past 12Hrs) Vital Signs Past 12 Hours Date Time Temp Pulse Resp B/P (MAP) Pulse Ox O2 Delivery O2 Flow Rate FiO2 09/18/16 16:09 36.7 79 18 113/65 91 Nasal Cannula 2.0 09/18/16 15:17 36.7 79 18 113/65 (81) 91 Nasal Cannula 2.0 09/18/16 14:50 36.6 84 16 135/65 (88) 97 Nasal Cannula 2.0 Micro Results No cultures obtained Risk Factors for Resistance * Hospitalization for 48 hours or more within the past 90 days Assessment & Plan Assessment 76 year old male with post-op fever. He had TKA on 09/14/16 and was recently discharged on 09/16/16. No cultures obtained this admission. Not much data available for review at this time as H&P not complete. Renal function appears to be at baseline. Estimated pharmacokinetics: * Ke ~0.056/hr, T1/2 ~12.4 hrs Plan Vancomycin IV * Loading dose: 2200 mg (25 mg/kg) * Maintenance dose: 1350 mg IV (15 mg/kg) every 14 hours * Goal trough level for indication : 15 to 20 mcg/mL * Trough level ordered for 09/20 @ 1330 Piperacillin/tazobactam * 4.5 g bolus administered over 30 minutes, then 3.375 g IV extended infusion every 8 hours for CrCl greater than 20 mL/min Pharmacy will continue to follow and will adjust dose/frequency as necessary. Thank you.
[2016-09-18] MEDS: OXYCODONE HCL 10 MG TABCR (OXYCONTIN) PO SCH (22:02)
--- NOTE | 2016-09-18 22:14 | ORTHOPEDIC CONSULTATION ---
DATE OF CONSULTATION: 09/18/2016 HISTORY OF PRESENT ILLNESS: The patient is a 76-year-old male, who had a total knee replacement, 09/14/2016. Procedure went well. No complications. He was discharged home after a period of days in the hospital. He was discharged 09/16/2016. The patient developed a fever of 101.7, despite taking acetaminophen and was not feeling well. His knee is not painful at all and he had no sense that anything was going wrong with his knee replacement at this time. SOCIAL HISTORY: He is a nonsmoker. He is and lives with his family. MEDICATIONS: He is on OxyContin and aspirin for DVT prophylaxis. Other medications as per HPI. He also takes oxycodone 5-10 mg q. 4 hours p.r.n. breakthrough pain. PHYSICAL EXAMINATION: His physical exam, with regard to his lower extremities, demonstrates he has no calf tenderness. He has a Silverlon dressing on his left knee. He has no warmth or erythema. He does have ecchymosis around the knee. Posterior medial knee has some fracture blisters, which have not ruptured and up the thigh, he has ecchymosis. This is all consistent with some postoperative bleeding. He has 0 through 100 degrees range of motion, intact extensor mechanism and really no pain at all with range of motion of his knee. No signs of infected knee replacement. ASSESSMENT: Postop fever. Multiple possible causes, including a UTI, for which patient had positive culture at some point preop. The patient going through a fever workup. He does have a negative ultrasound for DVT at this time. Defer treatment to medical physician. We will follow his knee as needed. No requirement for aspiration of the knee at this time. [facility]
[2016-09-18 22:56] VITALS: BP 108/57; PULSE 75; TEMP 36.7; O2SAT 97
[2016-09-19] MEDS: ACETAMINOPHEN 500 MG TAB PO SCH ×2 (01:08→08:32)
[2016-09-19] MEDS: PIPERACILL/TAZOBAC IV 3.375 GM in DEXTROSE 5% 100ML IV SCH ×2 (03:41→12:05)
[2016-09-19 05:37] LABS: EOS % 2.3 %; HEMATOCRIT 26.8 % (42-52); IG% 0.4 %; LYMPH % 20.7 %; LYMPH ABS # 1.17 K/uL (1.2-3.4); MEAN CELL VOLUME 89.9 fL (80-100); MEAN CORPUSCULAR HEMOGLOBIN 28.9 pg (25-34); MEAN CORPUSCULAR HGB CONC 32.1 g/dl (32-36); MEAN PLATELET VOLUME 9.1 fL (7.4-10.4); MONO % 10.8 %; NEUT % 65.8 %; PLATELET COUNT 148 K/uL (130-400); RED BLOOD COUNT 2.98 M/uL (4.7-6.1); WHITE BLOOD COUNT 5.65 K/uL (4.8-10.8)
[2016-09-19 06:01] LABS: BUN/CREATININE RATIO 10.5 (10-20); CALCIUM 7.6 mg/dl (8.5-10.1); CREATININE 1.1 mg/dl (0.60-1.40); POTASSIUM 4.2 mmol/L (3.5-5.1)
[2016-09-19 06:08] LABS: COMPLETE YES
[2016-09-19 07:33] VITALS: BP 126/73; PULSE 66; TEMP 36.9; O2SAT 95
[2016-09-19 08:26] VITALS: O2SAT 93
[2016-09-19] MEDS: ASPIRIN 81 MG ECTAB PO SCH (08:32)
[2016-09-19] MEDS: OXYCODONE HCL 10 MG TABCR (OXYCONTIN) PO SCH (08:32)
[2016-09-19] MEDS ORDERED: AMLODIPINE BESYLATE 5 MG TAB PO SCH (09:00)
[2016-09-19] MEDS ORDERED: VANCOMYCIN INJ 1,350 MG in SODIUM CHLORIDE 0.9% 250ML 250 ML IV SCH (10:00)
--- NOTE | 2016-09-19 10:15 | Family Medicine Progress Note ---
Progress Note Date of Service Sep 19, 2016. Subjective Pt evaluation today including: conversation w/ patient, physical exam, chart review, lab review The patient was seen and examined at bedside. No acute overnight events. Pt is doing well. Room oxygen was removed. Pt is resting comfortably. Pt is on scheduled Tylenol 1000mg Q8H and Schedule Oxycodone 10mg BID. Pt had a large bowel movement this morning. I saw it, brown stool, not black, no hematochezia. No fevers. ROS: Pt denies dyspnea, denies chest pain, denies fevers. No pain. No Dysuriea. Urine is yellow. Plan of care was described to the patient and all questions were answered. Objective Physical Exam General Appearance: WD/WN, no apparent distress Eyes: EOMI Respiratory/Chest: chest non-tender, lungs clear, normal breath sounds, no respiratory distress, no accessory muscle use, + pertinent finding (No pain on deep inspiration. ) Cardiovascular: regular rate, rhythm, no edema, no gallop, no JVD, no murmur Abdomen: normal bowel sounds, non tender, soft, no organomegaly, + pertinent finding (No CVA tenderness. ) Extremities: normal range of motion, non-tender, no calf tenderness, + pertinent finding (left lower extremity swelling 1+, dressing over left knee, no tenderness to palpation of calves bilaterally, FROM of knee and ankles bilaterally.) Neurologic/Psychiatric: no motor/sensory deficits, alert, normal mood/affect, oriented x 3 Assessment and Plan 76 [address] from [facility] with a 2 day history of fevers starting on POD #3. Underwent left total knee arthroplasty on 09/14/16. Pt was doing his home PT exercise at home without difficulty, knee is not giving him much pain. As per Dr. Pascual's note, left knee arthroplasty is healing well. Will follow up with [facility] today for urine and blood culture results. Fevers, no source identified yet. - Afebrile in Hospital, but pt is on 1g Tylenol Q8H, no wbc count. - CXR reportedly normal as per family, lungs clear on auscultation. - UA from [facility] shows ketones and few hyaline casts only. - Per ortho, left knee healing well, unlikely source of infection. - c/w IV vancomycin and Zosyn until cultures return. - Follow up on CXR report and blood cultures taken at [facility], if neg, no ABx on discharge. - Trend CBC and BMP New Oxygen Requirement in the ER (resolved) - Pt denies dyspnea and has denied dyspnea during admission. - 93% on Room air, unknown reason for hypoxia, have low threshold for CT Chest. - Sats improved when pt took deep breaths, could be all due to deconditioning. - LE US negative for DVT. - PT/OT Pain - Tylenol 1000mg q8h - Oxycodone SR 10mg q12h - Oxycodone IR 5mg PRN q4h for breakthrough. - Senna qHS - PT/OT HTN - c/w Amlodipine 2.5mg qAM - Benazepril 20mg daily held in view of mildly elevated creatinine and hyaline casts on outside UA + orthostatic symptoms - Orthostatic BP BID BPH - Finasteride 5mg qHS + tamsulosin 0.4mg qHS VTE PPx - Aspirin 81mg BID x 30 days post op as per surgeon - MARBELLA Tam Dispo - Med/surg. FULL CODE. Resident Involvement: Resident Care Provided Care Provided: Adult [facility] Medicine
--- NOTE | 2016-09-19 11:02 | Orthopedic Progress Note ---
Orthopedic Progress Note Date of Service Sep 19, 2016. Subjective Reports: feeling well, Denies: complaints Additional Notes: Pt is awake, alert sitting in chair. No complaints. Taking Oxycontin and Tylenol only for pain control. Hoping to go home soon. Objective calves soft nontender, N/V intact, dressing C/D/I, A&O x3, toes mobile thigh swollen, ecchymotic. Silverlon dressing intact with minimal drainage. Skin blister noted on the posteromedial aspect of knee. No erythema. Date Time Temp Pulse Resp B/P (MAP) Pulse Ox O2 Delivery O2 Flow Rate FiO2 09/19/16 08:26 93 Room Air 09/19/16 07:33 36.9 66 16 126/73 (90) 95 Nasal Cannula 2.0 09/19/16 07:31 Room Air 2.0 09/18/16 23:15 Room Air 09/18/16 22:56 36.7 75 16 108/57 (74) 97 Nasal Cannula 2.0 09/18/16 20:00 111/74 (86) 09/18/16 16:09 36.7 79 18 113/65 91 Nasal Cannula 2.0 09/18/16 15:17 36.7 79 18 113/65 (81) 91 Nasal Cannula 2.0 09/18/16 14:50 36.6 84 16 135/65 (88) 97 Nasal Cannula 2.0 Laboratory Results 24 Hours: Test 09/19/16 05:04 White Blood Count 5.65 K/uL Red Blood Count 2.98 M/uL Hemoglobin 8.6 g/dL Hematocrit 26.8 % Mean Corpuscular Volume 89.9 fL Mean Corpuscular Hemoglobin 28.9 pg Mean Corpuscular Hemoglobin Concent 32.1 g/dl Platelet Count 148 K/uL Mean Platelet Volume 9.1 fL Neutrophils (%) (Auto) 65.8 % Lymphocytes (%) (Auto) 20.7 % Monocytes (%) (Auto) 10.8 % Eosinophils (%) (Auto) 2.3 % Basophils (%) (Auto) 0.0 % Neutrophils # (Auto) 3.72 K/uL Lymphocytes # (Auto) 1.17 K/uL Monocytes # (Auto) 0.61 K/uL Eosinophils # (Auto) 0.13 K/uL Basophils # (Auto) 0.00 K/uL Assessment & Plan Assessment: Fever s/p Left TKA Plan: Continue PT/OT Discussed with pt on no long walks etc while he still has moderate welling in the knee ROM protocol As per Medicine Service.
--- NOTE | 2016-09-19 13:24 | DIAGNOSTIC IMAGING REPORT ---
CHEST 2 VIEWS ROUTINE HISTORY: Post op fever, r/o atelectasis, needed o2 in the ER COMPARISON: Chest 08/15/2016. FINDINGS: Posterior blunting of the costophrenic sulci. This suggest trace pleural effusions. No focal lung consolidations to suggest pneumonia. No evidence for pulmonary edema. The heart is normal in size. No pneumothorax. IMPRESSION: Trace bilateral pleural effusions. No focal lung consolidations to suggest pneumonia Electronically signed by: Jc Bailey M.D. 09/19/2016 1:23 PM Dictated Date/Time: 09/19/2016 1:21 PM
[2016-09-19 13:29] VITALS: O2SAT 98
[2016-09-19 15:02] VITALS: BP 117/70; PULSE 73; TEMP 36.3; O2SAT 93
--- NOTE | 2016-09-19 15:26 | Discharge Instructions ---
Discharge Instructions Date of Service Sep 19, 2016. Admission Reason for Admission: FEVER Discharge Discharge Diagnosis / Problem: Fever Discharge Goals Goal(s): Decrease discomfort, Improve function, Increase independence, Improve nutritional status Activity Recommendations Activity Limitations: resume your previous activity . Instructions / Follow-Up Instructions / Follow-Up Follow up with your primary care physician within one week. You are being discharged without antibiotics. There is currently no indication for antibiotics at this time. Our orthopedic surgeon assessed that your knee is at a proper stage of wound healing. We recommend continuing your follow up appointments with your orthopedic surgeon and continuing regular rehabilitation exercises as you have been previously instructed. If you experience high fevers, pain in your lower extremities, chest pain, difficulty breathing or unremitting vomiting please return to the ER. Current Hospital Diet Patient's current hospital diet: Regular Diet Discharge Diet Recommended Diet: Regular Diet Pending Studies Studies pending at discharge: no Laboratory Results Hemoglobin A1c Test 08/15/16 11:09 Range/Units Estimated Average Glucose 120 mg/dl Hemoglobin A1c 5.8 H 4.5-5.6 % Medical Emergencies . Who to Call and When: Medical Emergencies: If at any time you feel your situation is an emergency, please call 911 immediately. . Non-Emergent Contact Non-Emergency issues call your: Primary Care Provider, Surgeon . . "Provider Documentation" section prepared by Nash Evans. . VTE Core Measure Inpt VTE Proph given/why not?: Other Anticoagulation, T.E.D. Stockings, SCD's Resident Involvement: Resident Care Provided Care Provided: Adult Hospital Medicine
--- NOTE | 2016-09-19 15:30 | Discharge Summary ---
Discharge Summary Date of Service Sep 19, 2016. (Nash Evans M.D.) Discharge Summary Admission Date: Sep 18, 2016 at 14:50 Discharge Date: Sep 19, 2016 Discharge Disposition: Home Principal Diagnosis: Fever Immunizations: Have You Had Influenza Vaccine: No History of Pneumococcal: Yes History of Hepatitis B Vaccine: Unknown Procedures: CHEST 2 VIEWS ROUTINE HISTORY: Post op fever, r/o atelectasis, needed o2 in the ER COMPARISON: Chest 08/15/2016. FINDINGS: Posterior blunting of the costophrenic sulci. This suggest trace pleural effusions. No focal lung consolidations to suggest pneumonia. No evidence for pulmonary edema. The heart is normal in size. No pneumothorax. IMPRESSION: Trace bilateral pleural effusions. No focal lung consolidations to suggest pneumonia ++++++++++++++++++++++++++++++++++++++++++ ULTRASOUND LEFT VENOUS DOPP LOWER EXT UNILAT CLINICAL HISTORY: Left thigh swelling. post op day 4 COMPARISON STUDY: No previous studies for comparison. FINDINGS: Real-time and color flow Doppler imaging were performed. Flow was seen within the femoral, popliteal and calf veins with no intraluminal thrombus demonstrated. The saphenous vein is patent. IMPRESSION: No evidence of left lower extremity DVT. (Nash Evans M.D.) Principal Diagnosis: fever (Neto Johnson D.O.) Medication Reconciliation Continued Medications: Acetaminophen (Tylenol Extra Strength) 500 Mg Tab 2 TABS PO Q8H for 30 Days Amlodipine (Norvasc) 2.5 Mg Tab 2.5 MG PO QAM, TAB Aspirin (Aspir-81) 81 Mg Tab 1 TAB PO BID for 30 Days, #60 TAB 3 Refills AFTER 30 DAYS, STOP TAKING THE TABLET TWICE DAILY AND RESUME YOUR ONCE DAILY DOSE Benazepril (Lotensin) 20 Mg Tab 20 MG PO QAM, TAB Finasteride (Proscar) 5 Mg Tab 5 MG PO QPM, TAB Oxycodone HCl (Oxycontin) 10 Mg Tabcr 10 MG PO Q12, #20 Oxycodone HCl (Oxycodone HCl) 5 Mg Tab 5-10 MG PO Q4H PRN for Pain, #60 TAB Senna (Senna Lax) 8.6 Mg Tab 17.2 MG PO HS, #30 TAB Simvastatin (Zocor) 20 Mg Tab 20 MG PO QPM, TAB Tamsulosin Hcl (Flomax) 0.4 Mg Cap 0.4 MG PO QPM, CAP Discharge Exam Subjective Pt evaluation today including: conversation w/ patient, physical exam, chart review, lab review The patient was seen and examined at bedside. No acute overnight events. Pt is doing well. Room oxygen was removed. Pt is resting comfortably. Pt is on scheduled Tylenol 1000mg Q8H and Schedule Oxycodone 10mg BID. Pt had a large bowel movement this morning. I saw it, brown stool, not black, no hematochezia. No fevers. ROS: Pt denies dyspnea, denies chest pain, denies fevers. No pain. No Dysuriea. Urine is yellow. Plan of care was described to the patient and all questions were answered. Physical Exam General Appearance: WD/WN, no apparent distress Eyes: EOMI Respiratory/Chest: chest non-tender, lungs clear, normal breath sounds, no respiratory distress, no accessory muscle use, + pertinent finding (No pain on deep inspiration. ) Cardiovascular: regular rate, rhythm, no edema, no gallop, no JVD, no murmur Abdomen: normal bowel sounds, non tender, soft, no organomegaly, + pertinent finding (No CVA tenderness. ) Extremities: normal range of motion, non-tender, no calf tenderness, + pertinent finding (left lower extremity swelling 1+, dressing over left knee, no tenderness to palpation of calves bilaterally, FROM of knee and ankles bilaterally.) Neurologic/Psychiatric: no motor/sensory deficits, alert, normal mood/affect, oriented x 3 (Nash Evans M.D.) Hospital Course 76M transferred from [facility] with a 2 day history of fevers starting on POD #3. Underwent left total knee arthroplasty on 09/14/16. Pt was doing his home PT exercise at home without difficulty, knee is not giving him much pain. As per Dr. Pascual's note, left knee arthroplasty is healing well. No fevers while in hospital. Blood culture results at [facility] were negative after 24 hours. No white blood cell elevation.UA was unremarkable. Chest X- ray was normal. Ultrasound of the LE were negative. Pt denies any sites of pain. No source of infection found. Was not discharged on antibiotics. Pt's had improved oxygen saturation after taking deep breaths, was encouraged to do incentive spirometry. Total Time Spent: Greater than 30 minutes This includes examination of the patient, discharge planning, medication reconciliation, and communication with other providers. (Nash Evans M.D.) Resident Physician Supervision Note: I interviewed and examined the patient. Discussed with Dr. Evans and agree with findings and plan as documented in the note. Any exceptions or clarifications are listed here: None Documented By: Neto Johnson feeling good no further fevers. no cough/sob. no chest pain. no urinary sx. knee doing well. ROS otherwise negative except for as above vitals noted nad breathing unlabored no accessory muscles no pallor or icterus fever - ddx most likely being atelectasis (fever, mild hypoxia, relatively few other sx) - repeat CXR and ongoing clinical vigilance shows nothing c/w pneumonia developing, blood cultures no growth to date, no urine sx, knee does not appear infected (including to ortho eval); discussed while doesn't fit clinically, with being in such an endemic area, should fever return would be reasonable to w/u for tick borne illnesses (again fever gone, no sx otherwise c/ w this, and diagnostic yield would be higher in a few days should sx return anyway) -stable for home Total Time Spent: Less than 30 minutes (Neto Johnson, D.O.) Discharge Instructions Please refer to the electronic Patient Visit Report (Discharge Instructions) for additional information. (Nash Evans M.D.) Follow-Up Follow up with PCP in one week. Please keep regularly scheduled orthopedics follow up appointment. Return to ER instructions were verbally given to patient. (Nash Evans M.D.) Additional Copies To José Miguel Devries M.D.; José Miguel Rinaldi,D.O.
[2016-09-19 15:34] VITALS: BP 117/70; PULSE 73; TEMP 36.3; O2SAT 93
[2016-09-19] MEDS ORDERED: ACETAMINOPHEN 500 MG TAB PO PRN (17:30)
--- NOTE | 2016-09-19 20:02 | Medical Student: [facility] ---
Med Student Progress Note Date of Service Sep 19, 2016. Subjective Pt evaluation today including: conversation w/ patient, lab review, review of studies Pain: 0/10 PO Intake: 1784ml Voiding: no voiding problems, no incontinence Patient presents post-operative day 5 following a complete left knee arthroplasty performed by Dr. Rinaldi 08/15/16 and discharged home 08/16. On 08/17, patient reports an elevated temperature recorded at 101.7 although otherwise, he felt fine. He contacted the surgeons office and was told to take acetaminophen which resolved the fever. On 08/18 he states he felt well, when suddenly he became nauseated, vomited, and had a temperature of 101.9. He contacted the office again and was directed to go to the emergency department. At [facility], a chest x-ray, EKG, UA, urinalysis, basic labs, and blood cultures were obtained. Patient denied pain at that time and states he felt "pretty good". According to family, patients oxygen saturation dropped to 75% and the decision was made to transfer Mr. Lopes to [facility] where Dr. Rinaldi is based. At this time, patient denies any pain, SOB, dizziness on standing, nausea, vomiting, hematuria, and blood in stool. He does say that his left leg is more swollen than is his norm, but no more than /. He denies any tenderness on palpation/manipulation of his lower extremity. Patient states he has been doing the exercises given to him following surgery ( stretching, marching, walking) with no difficulty, he says he is being followed closely by his daughter who is a physical therapist. He reports only minor stiffness currently, but it does not hinder his movement Review of Systems Constitutional: + see HPI Respiratory: + see HPI Cardiac: + see HPI Abdomen: + see HPI Musculoskeletal: + see HPI Male : + see HPI Heme: + see HPI All Other Systems: Reviewed and Negative Objective Vital Signs Date Time Temp Pulse Resp B/P (MAP) Pulse Ox O2 Delivery O2 Flow Rate FiO2 09/19/16 15:34 36.3 73 16 93 Room Air 09/19/16 15:02 36.3 73 16 117/70 (86) 93 Room Air 09/19/16 13:29 98 Room Air 09/19/16 08:26 93 Room Air 09/19/16 07:33 36.9 66 16 126/73 (90) 95 Nasal Cannula 2.0 09/19/16 07:31 Room Air 2.0 09/18/16 23:15 Room Air 09/18/16 22:56 36.7 75 16 108/57 (74) 97 Nasal Cannula 2.0 09/18/16 20:00 111/74 (86) Physical Exam General Appearance: no apparent distress Respiratory/Chest: chest non-tender, lungs clear, normal breath sounds, no respiratory distress, no accessory muscle use Cardiovascular: regular rate, rhythm, no gallop, no JVD, no murmur Extremities: no calf tenderness, + swelling, + pertinent finding (Minor eccymoisis over left lower extremity, large bullae posterior aspect patellar region) Neurologic/Psychiatric: no motor/sensory deficits, alert, normal mood/affect, oriented x 3 Skin: normal color, warm/dry, no rash Lymphatic: no adenopathy Comments: Patient has been afebrile since admission to observation unit Contacted [facility] - EKG, chest x-ray insignificant for active disease, blood culture preliminary report negative for any growth Repeat chest x-ray significant for minor pulmonary effusion and minor atelectasis noted in right lower lobe Ortho consult called to examine knee to r/o infection - surgical wound determined to be at appropriate stage of healing, no sign of infection Laboratory Results Last 24 Hours Test 09/18/16 18:22 09/19/16 05:04 09/19/16 05:09 Creatinine 1.20 mg/dl 1.10 mg/dl Est Creatinine Clear Calc Drug Dose 89.6 ml/min 68.0 ml/min Estimated GFR () 68.6 76.2 Estimated GFR (Non- 59.2 65.8 White Blood Count 5.65 K/uL Red Blood Count 2.98 M/uL Hemoglobin 8.6 g/dL Hematocrit 26.8 % Mean Corpuscular Volume 89.9 fL Mean Corpuscular Hemoglobin 28.9 pg Mean Corpuscular Hemoglobin Concent 32.1 g/dl Platelet Count 148 K/uL Mean Platelet Volume 9.1 fL Neutrophils (%) (Auto) 65.8 % Lymphocytes (%) (Auto) 20.7 % Monocytes (%) (Auto) 10.8 % Eosinophils (%) (Auto) 2.3 % Basophils (%) (Auto) 0.0 % Neutrophils # (Auto) 3.72 K/uL Lymphocytes # (Auto) 1.17 K/uL Monocytes # (Auto) 0.61 K/uL Eosinophils # (Auto) 0.13 K/uL Basophils # (Auto) 0.00 K/uL RDW Standard Deviation 44.2 fL RDW Coefficient of Variation 13.4 % Immature Granulocyte % (Auto) 0.4 % Immature Granulocyte # (Auto) 0.02 K/uL Sodium Level 144 mmol/L Potassium Level 4.2 mmol/L Chloride Level 107 mmol/L Carbon Dioxide Level 34 mmol/L Anion Gap 3.0 mmol/L Blood Urea Nitrogen 12 mg/dl BUN/Creatinine Ratio 10.5 Random Glucose 105 mg/dl Calcium Level 7.6 mg/dl Medications Medications Dose Route/Sig Max Daily Dose Days Date Category Dose Instructions Tylenol Extra Strength (Acetaminophen) 500 Mg Tab 2 Tabs PO Q8H 30 09/16/16 Rx Senna Lax (Senna) 8.6 Mg Tab 17.2 Mg PO HS 09/16/16 Rx Oxycodone HCl 5 Mg Tab 5-10 Mg PO Q4H PRN 09/16/16 Rx Oxycontin (Oxycodone HCl) 10 Mg Tabcr 10 Mg PO Q12 09/16/16 Rx Aspir-81 (Aspirin) 81 Mg Tab 1 Tab PO BID 30 09/16/16 Rx AFTER 30 DAYS, STOP TAKING THE TABLET TWICE DAILY AND RESUME YOUR ONCE DAILY DOSE Flomax (Tamsulosin Hcl) 0.4 Mg Cap 0.4 Mg PO QPM 08/15/16 Reported Proscar (Finasteride) 5 Mg Tab 5 Mg PO QPM 08/15/16 Reported Zocor (Simvastatin) 20 Mg Tab 20 Mg PO QPM 08/15/16 Reported Lotensin (Benazepril HCl) 20 Mg Tab 20 Mg PO QAM 08/15/16 Reported Norvasc (Amlodipine Besylate) 2.5 Mg Tab 2.5 Mg PO QAM 08/15/16 Reported Assessment and Plan Assessment and Plan: Fever most likely secondary to post-surgical atelectasis - Repeat chest x-ray to r/o pneumonia - Continued use of spirometer to improve lung volumes - Continue acetaminophen PRN Low oxygen saturation most likely secondary to post-surgical atelectasis - Repeat chest x-ray to r/o pneumonia - Continued use of spirometer to improve lung volumes Post-operative pain/limitations - Continue acetaminophen + oxycodone PRN for pain control - Continue senna, mirilax, etc. to prevent opiate induced constipation - Continue physical therapy exercises to strengthen joint - Follow up appointment with Dr. Rinaldi BPH - Continue Tamsulosin/finasteride prescription Go to Emergency department if you experience high/recurrent fevers, increased/ bloody discharge from surgical site, difficulty breathing, chest pain, calf swelling and tenderness. Discharge planning: home
[2016-09-20] MEDS ORDERED: VANCOMYCIN TROUGH ONE (13:30)
== END 2016-09-19 18:37 | disposition home or self-care (01) ==
LOC: C.3E 14:50 → INTOOBSV 14:50
PROVIDERS: ADMIT Hospitalist; ATTEND Family Medicine
DX: R50.9 Fever, unspecified (principal); Z96.652 Presence of left artificial knee joint; I10 Essential (primary) hypertension; R60.0 Localized edema

== ENCOUNTER 2017-06-20 08:25 | Inpatient (IN) | payer OTHER ==
--- NOTE | 2017-05-24 15:15 | History and Physical ---
History & Physical Date of Service May 24, 2017. History & Physical PROCEDURE: Right knee replacement. HISTORY OF PRESENT ILLNESS: The patient is a pleasant 76-year-old male who presents for preoperative evaluation prior to Right knee replacement. States he is having pain in this knee for several years now which has gradually worsened, it has now gotten to the point that it is affecting his daily activities including walking, standing and going up and down steps. He takes oral anti-inflammatories including ibuprofen, has had previous viscosupplementation with no relief. He has completed a course of physical therapy. At this point in time, he has failed conservative measures and would like to proceed with right knee replacement. had his left knee replaced in September 2016. PAST MEDICAL HISTORY: 1. Hypertension. 2. High cholesterol. 3. History of melanoma. 4. BPH. ALLERGIES: No known drug allergies. MEDICATIONS: 1. Amlodipine 2.5 mg daily. 2. Benazepril 20 mg daily. 3. Zocor 20 mg daily. 4. Finasteride 5 mg daily. 5. Aspirin 81 mg daily. PAST SURGICAL HISTORY: 1. Left TKA September 2016 2. Melanoma arm removed 2008. FAMILY HISTORY: Noncontributory. SOCIAL HISTORY: Denies a history of smoking or tobacco use. No alcohol consumption. REVIEW OF SYSTEMS: Otherwise negative. Please see HPI for pertinent positives. PHYSICAL EXAMINATION: GENERAL: A pleasant 76-year-old male in no acute distress, alert and oriented x3. VITAL SIGNS: Blood pressure is 132/80, pulse 93. HEENT: Normocephalic, atraumatic. CARDIAC: He has a grade 2 systolic ejection murmur noted, he also has regular rate and rhythm for between 5-6 beats and then drop beat and then resumes regular rhythm. LUNGS: Clear to auscultation without rales or wheeze bilaterally. ABDOMEN: Soft, nontender. Bowel sounds present. EXTREMITIES: Right lower extremity neurovascularly intact. Calves are soft and nontender. DP pulse +2. Demonstrates good quad tone. Straight leg raise without lag. No erythema or warmth. Has mild effusion. Overall has a varus alignment. Positive crepitation with motion. Range of motion is 0/5/115. IMAGING: Review of the Right knee showed findings consistent with degenerative joint disease including joint space narrowing, subchondral sclerosis, osteophyte formation noted. IMPRESSION: 1. Right knee degenerative joint disease. 2. Past medical history as outlined above. PLAN: Further care discussed with the patient. At this point in time, has failed conservative measures and would like to proceed with right knee replacement. We will place on aspirin 81 mg p.o. b.i.d. for a month postop. Plan to discharge home with outpatient physical therapy.
[2017-05-29 13:20] VITALS: BMI 29.0
--- NOTE | 2017-05-29 14:02 | PAT Medication Instructions ---
Service Date May 29, 2017. Current Home Medication List Acetaminophen (Tylenol), 2 TAB PO UD PRN for prn Amlodipine (Norvasc), 2.5 MG PO QAM Aspirin (Aspirin Ec), 81 MG PO HS Benazepril (Lotensin), 20 MG PO QAM Finasteride (Proscar), 5 MG PO QPM Pajseaphinn-Frewqchxhyt-Dqo C- (Glucosamine Chondroitin), 2 CAP PO QAM Ibuprofen (Ibuprofen), 1 TAB PO QAM Indomethacin (Indocin), 25 MG PO UD PRN for gout Simvastatin (Zocor), 20 MG PO QPM Tamsulosin Hcl (Flomax), 0.4 MG PO QPM Medication Instructions For Your Scheduled Surgery -Contact your surgeon for instructions for: Ibuprofen (Ibuprofen), 1 TAB PO QAM Indomethacin (Indocin), 25 MG PO UD PRN for gout - Hold the following medications 2 weeks prior to surgery: Hjgmnhuewlr-Eyoqazetsmc-Fss C- (Glucosamine Chondroitin), 2 CAP PO QAM - Hold the following medications the morning of surgery: Benazepril (Lotensin), 20 MG PO QAM - Take the following medications the morning of surgery with a sip of water: Acetaminophen (Tylenol), 2 TAB PO UD PRN for prn (if needed, can be taken up to four hours before surgery) Amlodipine (Norvasc), 2.5 MG PO QAM - Take the following medications as scheduled the night before surgery: Aspirin (Aspirin Ec), 81 MG PO HS Acetaminophen (Tylenol), 2 TAB PO UD PRN for prn (if needed) Finasteride (Proscar), 5 MG PO QPM Simvastatin (Zocor), 20 MG PO QPM Tamsulosin Hcl (Flomax), 0.4 MG PO QPM If you have any questions please call us at [phone] or [phone] or [phone]
[2017-05-29 14:54] LABS: BASO % 0.4 %; BASO ABS # 0.02 K/uL (0-0.2); EOS % 1.6 %; EOS ABS # 0.09 K/uL (0-0.5); HEMATOCRIT 42.1 % (42-52); HEMOGLOBIN 14.2 g/dL (14.0-18.0); IG# 0.01 K/uL (0.00-0.02); LYMPH % 27.8 %; LYMPH ABS # 1.53 K/uL (1.2-3.4); MEAN CELL VOLUME 86.6 fL (80-100); MEAN CORPUSCULAR HEMOGLOBIN 29.2 pg (25-34); MEAN CORPUSCULAR HGB CONC 33.7 g/dl (32-36); MEAN PLATELET VOLUME 9.8 fL (7.4-10.4); MONO % 6.2 %; MONO ABS # 0.34 K/uL (0.11-0.59); NEUT % 63.8 %; NEUT ABS # 3.52 K/uL (1.4-6.5); PLATELET COUNT 203 K/uL (130-400); RED CELL DISTRIBUTION WIDTH CV 13.3 % (11.5-14.5); RED CELL DISTRIBUTION WIDTH SD 42.1 fL (36.4-46.3); WHITE BLOOD COUNT 5.51 K/uL (4.8-10.8)
[2017-05-29 15:21] LABS: ALBUMIN 3.7 gm/dl (3.4-5.0); CALCIUM 9.5 mg/dl (8.5-10.1); CREATININE 1.05 mg/dl (0.60-1.40); POTASSIUM 3.7 mmol/L (3.5-5.1)
[2017-05-30 06:26] LABS: HEMOGLOBIN A1C 5.7 % (4.5-5.6)
[2017-06-20] VITALS (8 sets, daily range): BP systolic 111–166; BP diastolic 69–127; PULSE 57–78; TEMP 36.4–36.7; O2SAT 95–97; Ht 177.8 cm; Wt 91.9 kg
[~2017-06-20] VITALS: Ht 177.8 cm; Wt 91.9 kg
[2017-06-20] MEDS: TRANEXAMIC ACID INJ 1,000 MG x 2 Bags IV SCH ×4 (06:30→11:00)
[~2017-06-20 08:25] MED LIST changes: -ACET-1138 PO; +ACET-1256 PO; +ACETAMINOPHEN 500 MG TAB PO SCH; -ASPI-232 PO; +ASPI81TA28 PO; +BUPIVACAINE 0.25% 30 ML VIAL ONE; +BUPIVACAINE 0.5 % 5 MG/1 ML PF 10ML VIAL ONE; +CEFAZOLIN 2000MG IV PUSH 15 ML IV SCH; +CeleBREX 200 MG CAP PO SCH; +DEXAMETHASONE 4 MG TAB PO SCH; +FAMOTIDINE 20 MG TAB PO SCH; +GABAPENTIN 300 MG CAP PO SCH; +GLUC1CAP35 PO; +INDO-22 PO; +LACTATED RINGER'S 1000ML 1,000 ML IV SCH; +LACTATED RINGER'S 1000ML 500 ML IV SCH; +LACTATED RINGER'S 1000ML IV SCH; +METOCLOPRAMIDE HCL 10 MG TAB PO SCH; +MTR/400 PO; -OXYSR10 PO; +ROPIVACAINE 5MG/ML 30 ML 150 MG, BUPIVACAINE 0.5% MPF INJ 30 ML, EpINEphrine HCL INJ 0.... INFIL SCH; -RXC5 PO; -SNK PO
[2017-06-20] MEDS ORDERED: MIDAZOLAM HCL 1 MG/ML 2ML VIAL ONE ×2 (09:28)
[2017-06-20] MEDS ORDERED: FENTANYL CITRATE INJ 50 MCG/1 ML 2 ML VIAL ONE (09:28)
[2017-06-20] MEDS ORDERED: ONDANSETRON INJ 2 MG/ML 2 ML VIAL IV PRN ×2 (10:00→13:00)
[2017-06-20] MEDS ORDERED: EpHEDrine SULFATE INJ 50 MG/ML AMP IV PRN (10:00)
[2017-06-20] MEDS ORDERED: FENTANYL CITRATE INJ 50 MCG/1 ML 2 ML VIAL IV PRN (10:00)
[2017-06-20] MEDS ORDERED: ATROPINE SULFATE 0.1 MG/ML 5ML SYR IV PRN (10:00)
[2017-06-20] MEDS ORDERED: BACITRACIN 50000 UNIT VIAL ONE (10:40)
[2017-06-20] MEDS ORDERED: POVIDONE-IODINE OP SOLN 30 ML BTL ONE (10:40)
[2017-06-20] MEDS ORDERED: ORTHO JOINT ANESTHETIC ONE (10:40)
[2017-06-20] MEDS ORDERED: LIDOCAINE HCL 2% 2 ML VIAL (20MG/ML) ONE (11:51)
[2017-06-20] MEDS ORDERED: PROPOFOL IV EMULSION 10 MG/ML 20 ML VIAL IV ONE (11:51)
--- NOTE | 2017-06-20 12:19 | [facility] Post Operative Brief Note ---
Immediate Operative Summary Operative Date Jun 20, 2017. Pre-Operative Diagnosis Right Knee Degenerative Joint Disease Post-Operative Diagnosis Right Knee Degenerative Joint Disease Procedure(s) Performed Right Total Knee Arthroplasty utilizing Burgos nephew journey 2 7 femur 6 tibia 12 Poly [address] José Miguel Rinaldi Forging Press Operator Surgeon(s) Koby Swann PA-C Estimated Blood Loss 5ml Findings Consistent with Post-Op Diagnosis Specimens a. right knee bone and tissue Anesthesia Type MAC Spinal Regional Complication(s) none Disposition Disposition: Recovery Room / PACU
--- NOTE | 2017-06-20 12:21 | [facility] Operative Report ---
Operative Report Operative Date Jun 20, 2017. Pre-Operative Diagnosis Right Knee Degenerative Joint Disease Post-Operative Diagnosis Right Knee Degenerative Joint Disease Procedure(s) Performed Right Total Knee Arthroplasty utilizing Burgos nephIdentityForge journey 2 7 femur 6 tibia 12 Poly [address] José Miguel Rinaldi [employer]electric Component Machinist Surgeon(s) Koby Swann PA-C Estimated Blood Loss 5ml Findings Patient presents with severe end-stage DJD right knee subchondral sclerosis cystic changes marginal osteophytes [id number] changes medial compartment patellofemoral compartment lateral compartment Specimens a. right knee bone and tissue Anesthesia Type MAC Spinal Regional Complication(s) none Disposition Recovery Room / PACU Indications Patient presents with severe end-stage direct hormonal degenerative joint disease right knee no response to conservative therapy including physical therapy anti-inflammatories relative rest injections patient's x-rays will be evidence of subchondral sclerosis cystic changes marginal osteophytes bone to bone changes tricompartmentally Description of Procedure After proper prepping and draping of the Right lower extremity anterior midline incision was made over the region of the extensor extensor mechanism after meticulous hemostasis was obtained and maintained in subcutaneous tissues a medial parapatellar incision was made The patella was subluxed lateralward the medial lateral gutter were cleaned from any hypertrophic synovitis and scar tissue of the distal femoral block was placed and the distal femoral osteotomy cut was made subsequently the chamfers anterior and posterior osteotomy cuts were made utilizing the 4-in-1 block the tibia was subsequently subluxed anteriorward medial and ateral meniscal remnants were excised in their entirety remnants of the anterior and posterior cruciate ligaments were excised in their entirety excellent exposure of the proximal tibia was obtained the tibial osteotomy guide was placed on the proximal tibial osteotomy cut was made once again the knee was irrigated with copious amounts of sterile saline solution the patella was subsequently everted lateralward thickened scar tissue around the patella was removed the patella was subsequently cut utilizing a freehand technique and was drilled prepared for final preparation and placement of patella socially flexion-extension gaps were checked and the equal and symmetric trials were placed to the appropriate femoral and tibial trials with poly-spacer being placed for equal flexion and extension gaps and full range of motion including extension to 0 and flexion to 140 the trial components after having been taken to recovery range of motion was subsequently removed meticulous hemostasis was obtained and maintained subsequently a knee block injection of joint cocktail including ropivacaine 0.5% 150 mg. Bupivacaine 0.5 % epinephrine 1-200,030 mL's toradol 30 mg dexamethasone 4 mg ketamine 10 mg clonidine 100 micrograms normal saline solution 30 mg was infiltrated into the soft tissues of the posterior knee medial lateral gutters and periosteal synovium special attention was paid to protect neurovascular structures at all times subsequently trial components having been removed the knee was irrigated with sterile saline solution. debris was removed the proximal tibia was subsequently prepared and was made ready for the placement of the tibial component tibial component was also cemented and tamped into position the femoral component was subsequently placed and cemented in the position the patellar component was subsequently cemented in position because hemostasis once again obtained and maintained wound having been thoroughly irrigated with debridement and debridement lavage was performed as well as a medial parapatellar incision closed with #1 Vicryl in interrupted fashion subcutaneous was closed with #2 Vicryl skin was closed with skin clips. PA-C was necessary for prepping and drapping as well as wound closure of deep fascia Sub cutaneous tissue and skin and was necessary for the case. A sterile compressive dressing was placed patient was taken to recovery in stable condition of report dictated by Gentry I attest to the content of the Intraoperative Record and any orders documented therein. Any exceptions are noted below. I attest to the content of the Intraoperative Record and any orders documented therein. Any exceptions are noted below.
[2017-06-20] MEDS ORDERED: ALUMINUM/MAGNESIUM/SIMETH (MAALOX MAX) 30 ML UDC PO PRN (13:00)
[2017-06-20] MEDS ORDERED: BISACODYL 10 MG SUPP PR PRN (13:00)
[2017-06-20] MEDS ORDERED: CEFAZOLIN IV 2,000 MG in DEXTROSE 5% 50ML 50 ML IV SCH (13:00)
[2017-06-20] MEDS ORDERED: MoRPHine SULFATE 4 MG/ML 1 ML CARP\\VIAL IV PRN (13:00)
[2017-06-20] MEDS ORDERED: MAGNESIUM HYDROXIDE SUSP 30 ML UDC PO PRN (13:00)
[2017-06-20] MEDS ORDERED: TRAMADOL HCL 50 MG TAB PO PRN (13:00)
--- NOTE | 2017-06-20 13:28 | Anesthesiology Progress Note ---
Anesthesia Post Op Note Date & Time Jun 20, 2017 at 13:28 Vital Signs Pain Intensity: 0 Vital Signs Past 12 Hours Date Time Temp Pulse Resp B/P (MAP) Pulse Ox O2 Delivery O2 Flow Rate FiO2 06/20/17 13:15 36.7 62 20 114/68 94 Nasal Cannula 2 06/20/17 13:05 65 16 113/67 93 Nasal Cannula 2 06/20/17 12:57 36 69 16 97/59 93 Nasal Cannula 2 06/20/17 09:05 36.7 78 20 166/127 95 Room Air 154/97 Notes Mental Status: alert / awake / arousable, participated in evaluation Nausea / Vomiting: adequately controlled Pain: adequately controlled Airway Patency, RR, SpO2: stable & adequate BP & HR: stable & adequate Hydration State: stable & adequate Neuraxial Anesthesia: was administered, sensory block is resolving Anesthetic Complications: no major complications apparent
--- NOTE | 2017-06-20 13:57 | DIAGNOSTIC IMAGING REPORT ---
RIGHT KNEE 2 VIEWS History: Right total knee arthroplasty. Degenerative arthritis. Postop. FINDINGS: The patient is status post a right total knee arthroplasty. The hardware is intact. No fracture or dislocation. Skin stacy and surgical drains are in place. IMPRESSION: Right total knee arthroplasty. No evidence for hardware complication. Electronically signed by: Jc Bailey M.D. 06/20/2017 1:56 PM Dictated Date/Time: 06/20/2017 1:55 PM
[2017-06-20] MEDS: D5W AND 1/2NSS + 20MEQ KCL 1,000 ML IV SCH (15:47)
[2017-06-20] MEDS: ACETAMINOPHEN 500 MG TAB PO SCH ×2 (15:48→21:18)
[2017-06-20] MEDS: FERROUS GLUCONATE 324 MG TAB PO SCH (17:50)
[2017-06-20] MEDS: TAMSULOSIN HCL 0.4 MG CAP PO SCH (20:38)
[2017-06-20] MEDS: DOCUSATE SODIUM 100 MG CAP PO SCH (20:38)
[2017-06-20] MEDS: SIMVASTATIN 20 MG TAB PO SCH (20:38)
[2017-06-20] MEDS: FINASTERIDE 5 MG TAB PO SCH (20:38)
[2017-06-20] MEDS: CeleBREX 200 MG CAP PO SCH (20:38)
[2017-06-20] MEDS: CEFAZOLIN IV 2,000 MG in SYRINGE 0 ML IV SCH (20:38)
[2017-06-20] MEDS: ASPIRIN 81 MG ECTAB PO SCH (20:38)
[2017-06-20] MEDS: SENNA 8.6 MG TAB PO SCH (20:38)
[2017-06-21] MEDS: D5W AND 1/2NSS + 20MEQ KCL 1,000 ML IV SCH ×2 (01:24→11:08)
[2017-06-21] MEDS: CEFAZOLIN IV 2,000 MG in SYRINGE 0 ML IV SCH (03:32)
[2017-06-21 03:40] VITALS: BP 151/85; PULSE 69; TEMP 36.4; O2SAT 96
[2017-06-21] MEDS: ACETAMINOPHEN 500 MG TAB PO SCH ×3 (05:33→21:27)
[2017-06-21 06:20] LABS: HEMATOCRIT 34.4 % (42-52); HEMOGLOBIN 11.9 g/dL (14.0-18.0); MEAN CELL VOLUME 84.5 fL (80-100); MEAN CORPUSCULAR HEMOGLOBIN 29.2 pg (25-34); MEAN CORPUSCULAR HGB CONC 34.6 g/dl (32-36); MEAN PLATELET VOLUME 9.5 fL (7.4-10.4); PLATELET COUNT 170 K/uL (130-400); RED CELL DISTRIBUTION WIDTH CV 13.1 % (11.5-14.5); RED CELL DISTRIBUTION WIDTH SD 39.8 fL (36.4-46.3); WHITE BLOOD COUNT 19.33 K/uL (4.8-10.8)
[2017-06-21 06:48] LABS: CALCIUM 8.7 mg/dl (8.5-10.1); CREATININE 1.13 mg/dl (0.60-1.40)
[2017-06-21 07:43] VITALS: BP 132/84; PULSE 72; TEMP 36.7; O2SAT 96
--- NOTE | 2017-06-21 08:21 | Orthopedic Progress Note ---
Orthopedic Progress Note Date of Service Jun 21, 2017. Subjective Post OP Day: 1 Reports: feeling well, Denies: complaints Objective calves soft nontender, N/V intact, dressing C/D/I, A&O x3, toes mobile Date Time Temp Pulse Resp B/P (MAP) Pulse Ox O2 Delivery O2 Flow Rate FiO2 06/21/17 07:43 36.7 72 14 132/84 (100) 96 Room Air 06/21/17 03:40 36.4 69 16 151/85 (107) 96 Room Air 06/20/17 23:26 Room Air 06/20/17 22:57 36.4 65 16 115/74 (88) 95 Room Air 06/20/17 19:16 36.6 72 16 137/77 (97) 96 Room Air 06/20/17 16:07 36.7 69 16 117/73 (88) 97 Nasal Cannula 2.0 06/20/17 15:40 96 Nasal Cannula 2.0 06/20/17 15:17 70 16 124/73 (90) 06/20/17 14:28 57 16 117/74 (88) 96 Nasal Cannula 2.0 06/20/17 13:55 Nasal Cannula 2.0 06/20/17 13:55 36.7 59 16 111/69 (83) 96 Nasal Cannula 2.0 06/20/17 13:55 Nasal Cannula 2.0 06/20/17 13:35 59 14 117/69 95 Nasal Cannula 2 06/20/17 13:25 60 16 119/68 94 Nasal Cannula 2 06/20/17 13:15 36.7 62 20 114/68 94 Nasal Cannula 2 06/20/17 13:05 65 16 113/67 93 Nasal Cannula 2 06/20/17 12:57 36 69 16 97/59 93 Nasal Cannula 2 06/20/17 09:05 36.7 78 20 166/127 95 Room Air 154/97 Laboratory Results 24 Hours: Test 06/21/17 05:52 Hematocrit 34.4 % Hemoglobin 11.9 g/dL Assessment & Plan Assessment: POD 1 s/p Right TKA Plan: PT/OT Planning for OPPT upon dc Inhouse Planning Pain Management: Ultram, Morphine, PO Tylenol, Oxy IR DVT Prophylaxis: TEDs, SCDs, ASA Discharge Planning Discharge Planning: home with oppt
[2017-06-21 08:35] VITALS: O2SAT 96
[2017-06-21] MEDS: OXYCODONE HCL IR 5 MG TAB (IMMEDIATE RELEASE) PO PRN ×2 (09:06→20:06)
[2017-06-21] MEDS: MULTIVITAMIN TAB PO SCH (09:07)
[2017-06-21] MEDS: ASPIRIN 81 MG ECTAB PO SCH ×2 (09:07→20:08)
[2017-06-21] MEDS: CeleBREX 200 MG CAP PO SCH ×2 (09:07→20:07)
[2017-06-21] MEDS: DOCUSATE SODIUM 100 MG CAP PO SCH ×2 (09:07→20:07)
[2017-06-21] MEDS: AMLODIPINE BESYLATE 5 MG TAB PO SCH (09:08)
[2017-06-21] MEDS: FERROUS GLUCONATE 324 MG TAB PO SCH ×3 (09:08→18:22)
[2017-06-21] MEDS: ENALAPRIL MALEATE 10 MG TAB PO SCH (09:09)
[2017-06-21 11:45] VITALS: BP 112/62; PULSE 74; TEMP 36.5; O2SAT 95
[2017-06-21 15:19] VITALS: BP 133/75; PULSE 71; TEMP 36.7; O2SAT 97
--- NOTE | 2017-06-21 17:27 | Discharge Instructions ---
Discharge Instructions Date of Service Jun 21, 2017. Admission Reason for Admission: Right Knee Osteoarthritis Discharge Discharge Diagnosis / Problem: Right Knee Djd Discharge Goals Goal(s): Decrease discomfort, Improve function, Increase independence Activity Recommendations Activity Limitations: per Instructions/Follow-up section Weightbearing Status: Right weightbearing (as tolerated) . Instructions / Follow-Up Instructions / Follow-Up ACTIVITY RECOMMENDATIONS: SELF CARE INSTRUCTIONS AFTER TOTAL KNEE REPLACEMENT A. You may need to continue a physical therapy program after discharge from the hospital. There are several options available to you. Your doctor will assist you in selecting the best one for you. 1. An out-patient facility 2 to 3 times a week for therapy or home therapy. 2. Continue working on all exercises taught to you in the hospital. Your goals should be to increase bending of your knee to 90 degrees and beyond and to fully straighten your knee. B. You may progress at your own pace from walking with a walker or crutches to a cane; then to no assistive devices. C. Make walking a part of your daily routine. Be up as much as comfortable with rest periods throughout the day. Rest with leg elevation is very important. Use the ice wrap frequently for the first 3-4 weeks. D. There are no restrictions on activities. You may ride in a car, shop, participate in surety bond agent and all social activities. E. Wear the long elastic stockings (RADHA hose) 20 hours a day for 2 weeks after surgery. They can be removed several times a day for laundering and for a bath. F. You may shower, no tub baths until cleared by your doctor. SPECIAL CARE INSTRUCTIONS: VERY IMPORTANT TO READ AND REVIEW A. There are a few signs you need to watch for after you are home. Call [facility] if you notice any of the followin. Increased severe knee pain. Some pain is expected especially when you exercise. 2. Increased swelling in your leg or knee; pain or swelling of the calf muscle in either lower leg. 3. Any fluid drainage from the incision. 4. Shortness of breath or chest pain. B. Please call [facility] at if you have any concerns or questions about your operation or recovery. The doctor or his nurse will return your call promptly. C. You must take antibiotics before dental work, bladder, bowel or other surgery. Your doctor will provide you with a permanent care to carry describing this precaution. IMPORTANT: * REMEMBER TO TAKE ASPIRIN, 81 MG, TWICE DAILY FOR 4 WEEKS UNLESS OTHERWISE DIRECTED. THIS IS YOUR BLOOD THINNER. * HIGH RISK PATIENTS MAY BE PRESCRIBED A STRONGER BLOOD THINNER. THIS WILL BE PROVIDED AT DISCHARGE. * CALL IF INCREASED PAIN, REDNESS, DRAINAGE OR FEVER GREATER THAT 101. * WEAR RADHA HOSE 20 HOURS PER DAY FOR 2 WEEKS. Prevena- This is a large suction dressing covering your incision. This will help pull any excess drainage from the wound and allow your incision to heal properly. You may shower with this if you can keep the unit outside of the shower. If any bleeding or leakage is noted please call your doctor's office. This will remain on your incision for 7 days and then should be removed. This can be done yourself or by the home nursing staff if applicable. The entire unit is disposable once removed. Once removed, keep incision clean and dry. If redness or drainage is noted, please call your surgeon. IF INCISION IS LEAKING THROUGH DRESSING, CALL THE OFFICE . FOLLOW UP VISIT: If appointment is not already scheduled: Please call [facility] to make a follow-up appointment for 2 weeks after your surgery at . Current Hospital Diet Patient's current hospital diet: Regular Diet Discharge Diet Recommended Diet: Regular Diet Procedures Procedures Performed: Right Total Knee Arthroplasty utilizing Burgos nephew journey 2 7 femur 6 tibia 12 Poly 35 oval patella Pending Studies Studies pending at discharge: no Laboratory Results Hemoglobin A1c Test 05/29/17 13:48 Range/Units Estimated Average Glucose 117 mg/dl Hemoglobin A1c 5.7 H 4.5-5.6 % Medical Emergencies . Who to Call and When: Medical Emergencies: If at any time you feel your situation is an emergency, please call 911 immediately. . Non-Emergent Contact Non-Emergency issues call your: Surgeon Call Non-Emergent contact if: temperature is above 101.5, your pain is not controlled, your pain is worsening, wound has increased drainage, wound has increased redness . "Provider Documentation" section prepared by Koby Swann. . [place] Drug Monitoring Program Search Results: patient reviewed within database, no issues identified
[2017-06-21] MEDS: TAMSULOSIN HCL 0.4 MG CAP PO SCH (21:25)
[2017-06-21] MEDS: SENNA 8.6 MG TAB PO SCH (21:26)
[2017-06-21] MEDS: SIMVASTATIN 20 MG TAB PO SCH (21:26)
[2017-06-21] MEDS: FINASTERIDE 5 MG TAB PO SCH (21:26)
[2017-06-21 23:23] VITALS: BP 122/71; PULSE 74; TEMP 36.5; O2SAT 97
[2017-06-22] MEDS: ACETAMINOPHEN 500 MG TAB PO SCH ×2 (05:51→13:42)
[2017-06-22 06:10] VITALS: BP 132/76; PULSE 71; TEMP 36.8; O2SAT 98
[2017-06-22] MEDS: MULTIVITAMIN TAB PO SCH (07:51)
[2017-06-22] MEDS: OXYCODONE HCL IR 5 MG TAB (IMMEDIATE RELEASE) PO PRN ×2 (07:51→13:45)
[2017-06-22] MEDS: FERROUS GLUCONATE 324 MG TAB PO SCH ×2 (07:51→12:45)
[2017-06-22] MEDS: ENALAPRIL MALEATE 10 MG TAB PO SCH (07:51)
[2017-06-22] MEDS: AMLODIPINE BESYLATE 5 MG TAB PO SCH (07:52)
--- NOTE | 2017-06-22 08:20 | Orthopedic Progress Note ---
Orthopedic Progress Note Date of Service Jun 22, 2017. Subjective Post OP Day: 2 Reports: feeling well, Denies: chest pain, SOB, nausea / vomiting, light headedness, calf pain Objective calves soft nontender, N/V intact, capillary refill less than 2 sec., dressing C /D/I, A&O x3, toes mobile Date Time Temp Pulse Resp B/P (MAP) Pulse Ox O2 Delivery O2 Flow Rate FiO2 06/22/17 06:10 36.8 71 17 132/76 (94) 98 Room Air 06/21/17 23:23 36.5 74 17 122/71 (88) 97 Room Air 06/21/17 20:00 Room Air 06/21/17 15:19 36.7 71 18 133/75 (94) 97 Room Air 06/21/17 11:45 36.5 74 14 112/62 (79) 95 Room Air 06/21/17 08:35 96 Room Air Assessment & Plan Assessment: POD 2 s/p Right TKA Plan: PT/OT Planning for OPPT upon dc ASA 81MG BID PAIN MANAGEMENT DC HOME TODAY AFTER PT DC SILVERLON AND APPLY PREVENA DRESSING DUE TO CONTINUED WOUND DRAINAGE. Inhouse Planning Pain Management: Ultram, Morphine, PO Tylenol, Oxy IR DVT Prophylaxis: TEDs, SCDs, ASA Discharge Planning Discharge Planning: home with oppt
[2017-06-22] MEDS ORDERED: RXC5 PO (08:23)
[2017-06-22] MEDS ORDERED: SENN-61 PO (08:23)
[2017-06-22] MEDS ORDERED: CLB200 PO (08:23)
[2017-06-22] MEDS ORDERED: ONDA-170 PO (08:23)
[2017-06-22] MEDS ORDERED: ASPI81TA28 PO (08:23)
[2017-06-22] MEDS ORDERED: ACET-24 PO (08:23)
[2017-06-22] MEDS: ASPIRIN 81 MG ECTAB PO SCH (09:27)
[2017-06-22] MEDS: DOCUSATE SODIUM 100 MG CAP PO SCH (09:27)
[2017-06-22] MEDS: CeleBREX 200 MG CAP PO SCH (09:27)
[2017-06-22 13:10] VITALS: BP 132/76; PULSE 71; TEMP 36.8; O2SAT 98
--- NOTE | 2017-06-30 10:32 | Discharge Summary ---
Orthopedic Discharge Summary Admission Date/Reason Jun 20, 2017 at 09:30 Right Knee Osteoarthritis. Discharge Date/Disposition Jun 22, 2017 Home Diagnosis Principal Diagnosis: Right knee osteoarthritis Secondary Diagnoses/Problems: 1. Hypertension. 2. High cholesterol. 3. History of melanoma. 4. BPH. Procedure(s) Performed Right total knee arthroplasty Medication Reconciliation New Medications: Ondansetron Hcl (Zofran) 8 Mg Tab 8 MG PO Q8 PRN for Nausea, #20 TAB Acetaminophen (Sb Non-Aspirin Extra Stre) 500 Mg Tab 1000 MG PO Q8 for 30 Days, #180 TAB Celecoxib (Celebrex) 200 Mg Cap 200 MG PO BID, #60 CAP Oxycodone HCl (Oxycodone HCl) 5 Mg Tab 5-10 MG PO Q4H PRN for Pain, #60 TAB Senna (Senokot) 8.6 Mg Tab 17.2 MG PO HS for 14 Days, #28 TAB Changed Medications: Aspirin (Aspirin Ec) 81 Mg Tab 81 MG PO BID for 30 Days, #60 TAB (Changed from: HS) Continued Medications: Amlodipine (Norvasc) 2.5 Mg Tab 2.5 MG PO QAM, TAB Benazepril (Lotensin) 20 Mg Tab 20 MG PO QAM, TAB Finasteride (Proscar) 5 Mg Tab 5 MG PO QPM, TAB Umlbqenbqfs-Jkrzqxkrbtt-Gof C- (Glucosamine Chondroitin) 1 Cap Cap 2 CAP PO QAM Simvastatin (Zocor) 20 Mg Tab 20 MG PO QPM, TAB Tamsulosin Hcl (Flomax) 0.4 Mg Cap 0.4 MG PO QPM, CAP Discontinued Medications: Acetaminophen (Tylenol) 500 Mg Tab 2 TAB PO UD PRN for prn, #10 TAB Ibuprofen (Ibuprofen) 400 Mg Tab 1 TAB PO QAM Indomethacin (Indocin) 25 Mg Cap 25 MG PO UD PRN for gout, CAP Admission Physical Exam As per Admitting History & Physical. Hospital Course The Patient had an uneventful hospital course. Labs remained stable- lowest hemoglobin recorded: 11.9. Pain controlled on oral medications. Participated in PT with ambulation distance of 600 feet. ROM of operative knee reached 98 degrees. Drainage output totaled 300 cc prior to discontinuation. Patient did have a reported bowel movement. On POD 2, the patients Silverlon dressing was noted to have moderate drainage. This was switched over to a Prevena external wound vac to be left on for 7 days. DVT prophylaxis with Aspirin EC 81mg BID x 30 days/Andres stockings. Patient discharged home with Outpatient PT in stable condition. Please refer to daily progress notes for further details. Discharge Instructions Please refer to the electronic Patient Visit Report (Discharge Instructions) for additional information.
== END 2017-06-22 14:10 | disposition home health service (06) | DRG 470 ==
LOC: C.ACU 08:25 → C.3E 09:30 → ENRESERV 13:41
PROVIDERS: ADMIT Orthopaedic Surgery; ATTEND Orthopaedic Surgery
PROC: 0SRC0J9 Replacement of Right Knee Joint with Synthetic Substitute, Cemented, Open Approach (ICD-10-PCS; principal; 2017-06-20 11:00)
DX: M17.11 Unilateral primary osteoarthritis, right knee (principal); I10 Essential (primary) hypertension; E78.5 Hyperlipidemia, unspecified; N40.0 Benign prostatic hyperplasia without lower urinary tract symptoms; Z79.82 Long term (current) use of aspirin; Z85.820 Personal history of malignant melanoma of skin; Z96.652 Presence of left artificial knee joint